=== PATIENT | male | born 1945 | race Caucasian/White ===

== ENCOUNTER 2016-10-30 06:14 | Observation (INO) | payer MEDICARE, OTHER ==
[~2016-10-30] VITALS: Ht 174.6 cm; Wt 129.6 kg
[~2016-10-30 06:14] MED LIST: ALKA SELTZER PL; ARTIFICIAL TEA3.5 GM OP; ASPIRIN E.C. 8181 MG PO; BACTROBAN 22GM22 GM TP; BENADRYL25 M2 PO; BYSTOLIC10 MG PO; CELEXA40 MG; CELEXA40 MG PO; CLARITIN 1010 MG/TAB PO; COREG12.5 MG; COZAAR 50MG50 MG/TAB PO; CRESTOR20 MG PO; DIOVAN HCT PO; FISH OIL 1000MG1 CAP PO; FLONASE NASAL S16 GM NAS; FLONASE NASAL S16 GM NS; GLUCOPHAGE500 MG/TAB PO; GLUCOSAMINE/CHONDROI; HCTZ12.5TAB PO; IBU400 MG; IMDUR 60MG60 MG/TAB PO; IPRATROPIUM BROM3 M1 IH; JANUMET 1000 MG1 TA1 PO; JANUMET 1000 MG1 TAB PO; LASIX 40MG TABL40 MG PO; LEVAQUIN 750MG750 M1 PO; LOTENSIN40 MG; MVI PO; NORCO 325 MG-51 TAB PO; NORVASC 5MG5 MG/TAB PO; NORVASC10 MG PO; NOVLOG SQ; OCUVITE1 TA1 PO; PATANOL OPHTHALM5 ML OU; PLAVIX 75MG TAB75 MG PO; PRILOSEC 20MG20 MG PO; PROSVENT PO; REPATHA SU140 MG/1 M SQ; SAM-E PO; SINEMET 25/101 UDTAB PO; STOOL SOFTENER100 M2; TRAMADOL50 MG PO; TYLENOL 500MG500 MG PO; TYLENOL 8 HR PO; WELLBUTRIN 75MG75 MG PO; XARELTO15 MG PO; ZOCOR80 MG PO; ZOVIRAX800 MG PO; ZYDONE 5 PO; ZYRTEC 10MG10 MG PO
[2016-10-30 07:30] LABS: BASO # 0.1 (0.0-0.2); BASO % 0.7 % (0.0-2.0); GRAN # 8.3 (1.4-6.5); GRAN % 82.4 % (42.2-75.2); HEMATOCRIT 43.1 % (42.0-52.0); HEMOGLOBIN 14.1 g/dl (13.5-18.0); LYMPH # 0.9 (1.2-3.4); LYMPH % 8.8 % (20.0-51.0); MEAN CELL VOLUME 96 fl (80.0-100.0); MEAN CORPUSCULAR HEMOGLOBIN 31 pg (27.0-31.0); MEAN CORPUSCULAR HGB CONC 33 g/dl (33.0-37.0); MEAN PLATELET VOLUME 9.8 fl (7.4-10.4); MONO # 0.8 (0.1-0.6); MONO % 7.5 % (1.7-9.3); PLATELET COUNT 229 K/mm3 (130-400); REDCELL DISTRIBUTION WIDTH-CV 12.7 % (11.5-14.5); WHITE BLOOD COUNT 10.1 K/mm3 (4.8-10.8)
[2016-10-30 07:43] LABS: ADJUSTED CALCIUM 9.7 mg/dL (8.4-10.2); ALBUMIN 4.5 gm/dL (3.5-5.0); BILIRUBIN,TOTAL 0.9 mg/dL (0.0-1.0); C-REACTIVE PROTEIN 2.1 mg/dL (0.0-0.9); CALCIUM 10.1 mg/dL (8.4-10.2); CREATININE, serum 0.69 mg/dL (0.66-1.25); POTASSIUM 4.4 mmol/L (3.4-5.0); TOTAL PROTEIN 8.5 gm/dL (6.4-8.2)
[2016-10-30 07:44] LABS: INR 1.1 (0.8-3.0); PROTHROMBIN TIME 12.7 SECONDS (9.7-12.8)
[2016-10-30 07:53] LABS: TROPONIN-I 0.022 ng/mL (0.000-0.034)
[2016-10-30 16:33] VITALS: BP 185/82; PULSE 101; TEMP 97.4
[2016-10-30 18:52] VITALS: BP 184/84
[2016-10-30 20:33] VITALS: BP 169/76; PULSE 103; TEMP 98.7
[2016-10-31 00:29] VITALS: BP 154/79; PULSE 103; TEMP 98.5
[2016-10-31 04:25] VITALS: BP 126/61; PULSE 100; TEMP 98
[2016-10-31 07:04] LABS: BASO % 0.6 % (0.0-2.0); GRAN # 5.2 (1.4-6.5); GRAN % 71.6 % (42.2-75.2); HEMOGLOBIN 13.7 g/dl (13.5-18.0); LYMPH # 1.2 (1.2-3.4); LYMPH % 16.4 % (20.0-51.0); MEAN CELL VOLUME 97 fl (80.0-100.0); MEAN CORPUSCULAR HEMOGLOBIN 32 pg (27.0-31.0); MEAN CORPUSCULAR HGB CONC 33 g/dl (33.0-37.0); MEAN PLATELET VOLUME 10.1 fl (7.4-10.4); MONO # 0.8 (0.1-0.6); PLATELET COUNT 249 K/mm3 (130-400); RED BLOOD COUNT 4.35 M/mm3 (4.20-5.60); REDCELL DISTRIBUTION WIDTH-CV 13.2 % (11.5-14.5); WHITE BLOOD COUNT 7.3 K/mm3 (4.8-10.8)
[2016-10-31 07:14] LABS: CALCIUM 9.3 mg/dL (8.4-10.2); CREATININE, serum 0.86 mg/dL (0.66-1.25); POTASSIUM 4.3 mmol/L (3.4-5.0)
[2016-10-31 07:49] VITALS: BP 153/71; PULSE 89; TEMP 97.8
[2016-10-31 07:56] LABS: TROPONIN-I 0.052 ng/mL (0.000-0.034)
[2016-10-31 11:44] VITALS: BP 107/46; PULSE 73
[2016-10-31 15:40] VITALS: BP 129/60; PULSE 72; TEMP 98.3
[2016-10-31 20:51] VITALS: BP 136/52; PULSE 73; TEMP 97.5
[2016-11-01] VITALS (7 sets, daily range): BP systolic 105–152; BP diastolic 50–76; PULSE 72–78; TEMP 98.3–98.7
[2016-11-01 08:52] LABS: CALCIUM 8.5 mg/dL (8.4-10.2); CREATININE, serum 0.99 mg/dL (0.66-1.25); POTASSIUM 3.9 mmol/L (3.4-5.0)
[2016-11-01] MEDS ORDERED: PROAIR HFA0.09 MG/AC IH (14:14)
[2016-11-01] MEDS ORDERED: ANORO IH (14:15)
[2016-11-01] MEDS ORDERED: LASIX 40MG TABL40 MG PO (14:40)
[2017-06-08] MEDS ORDERED: XARELTO20 MG PO (11:04)
[2017-06-08] MEDS ORDERED: FLOMAX 0.40.4 MG/CAP PO (14:56)
[2017-06-11] MEDS ORDERED: GLUCOTROL10 MG PO (11:18)
[2017-06-11] MEDS ORDERED: IMDUR 60MG60 MG/TAB PO (11:18)
[2017-06-11] MEDS ORDERED: SINEMET 25/101 UDTAB PO (11:18)
[2017-06-11] MEDS ORDERED: ASPI325T6 PO (11:18)
[2017-06-11] MEDS ORDERED: TRADJENTA5 MG PO (11:18)
[2017-06-11] MEDS ORDERED: LASIX 40MG TABL40 MG PO (11:18)
[2017-06-11] MEDS ORDERED: LIPITOR 10MG10 MG PO (11:18)
[2017-06-11] MEDS ORDERED: MAG-OX 400400 MG/TAB PO (11:18)
[2017-06-11] MEDS ORDERED: ZEBETA 5MG5 MG PO (11:18)
[2017-06-11] MEDS ORDERED: PLAVIX 75MG TAB75 MG PO (11:18)
[2017-06-11] MEDS ORDERED: NAPROSYN500 MG PO (11:21)
[2017-06-11] MEDS ORDERED: ULTRAM 50MG TAB50 MG PO (11:30)
== END 2016-11-01 16:31 | disposition home or self-care (01) ==
LOC: COL.ER 06:14 → MEDICAL 14:17
PROVIDERS: Emergency Medicine; Physician Assistant
DX: I50.9 Heart failure, unspecified (principal); I21.4 Non-ST elevation (NSTEMI) myocardial infarction; I25.10 Atherosclerotic heart disease of native coronary artery without angina pectoris; I10 Essential (primary) hypertension; E11.9 Type 2 diabetes mellitus without complications; Z79.4 Long term (current) use of insulin; Z79.84 Long term (current) use of oral hypoglycemic drugs; Z86.711 Personal history of pulmonary embolism; Z79.01 Long term (current) use of anticoagulants; Z95.5 Presence of coronary angioplasty implant and graft; J44.9 Chronic obstructive pulmonary disease, unspecified; Z87.891 Personal history of nicotine dependence; G20 Parkinson's disease; G47.33 Obstructive sleep apnea (adult) (pediatric); E66.01 Morbid (severe) obesity due to excess calories; F32.9 Major depressive disorder, single episode, unspecified; R33.9 Retention of urine, unspecified; Z66 Do not resuscitate
CPT/HCPCS: A9502; G0378; G8978-GP; G8979-GP; J0360; J1650; J1815; J1940; J2785; J7512; Q9967

== ENCOUNTER → 2016-11-22 | Outpatient (CLI) | payer MEDICARE, OTHER ==
[~2016-11-22] MED LIST changes: +ANORO IH; +ASPI325T6 PO; +ASPIRIN 81M81 MG/TA2 PO; +CIPRO 250MG TA250 MG PO; +COLACE 100100 MG/CAP PO; +COUMADIN 3MG3 MG/TAB PO; +COUMADIN 5MG5 MG/TAB PO; +DULCOLAX S10 MG/SUPP RC; +FLAGYL500 MG PO; +FLEXERIL 1010 MG/TAB PO; +FLOMAX 0.40.4 MG/CAP PO; +GLUCOTROL10 MG PO; +LIPITOR 10MG10 MG PO; +LOVENOX120 MG/0.8 SQ; +MAG-OX 400400 MG/TAB PO; +MICROZIDE12.5 MG PO; +MIRALAX PA17 GM/Dose PO; +NAPROSYN500 MG PO; +PROAIR HFA0.09 MG/AC IH; +SENOKOT S 50 MG1 TAB PO; +TRADJENTA5 MG PO; +TYLENOL 325MG325 MG PO; +ULTRAM 50MG TAB50 MG PO; +XARELTO20 MG PO; +ZEBETA 5MG5 MG PO; +ZOCOR 20MG20 MG PO
== END ==
LOC: COL.PUL 11-07 15:00
DX: J44.9 Chronic obstructive pulmonary disease, unspecified (principal); Z86.711 Personal history of pulmonary embolism; I25.10 Atherosclerotic heart disease of native coronary artery without angina pectoris; I10 Essential (primary) hypertension
CPT/HCPCS: A9539; A9540

== ENCOUNTER 2016-12-01 03:24 | Observation (INO) | payer MEDICARE, OTHER ==
[~2016-12-01] VITALS: Ht 172.7 cm; Wt 128.5 kg
[2016-12-01] VITALS (12 sets, daily range): BP systolic 120–182; BP diastolic 58–95; PULSE 74–92; TEMP 97.6–98.4
[~2016-12-01 03:24] MED LIST changes: -ASPI325T6 PO; -ASPIRIN 81M81 MG/TA2 PO; -CIPRO 250MG TA250 MG PO; -COLACE 100100 MG/CAP PO; -COUMADIN 3MG3 MG/TAB PO; -COUMADIN 5MG5 MG/TAB PO; -DULCOLAX S10 MG/SUPP RC; -FLAGYL500 MG PO; -FLEXERIL 1010 MG/TAB PO; -FLOMAX 0.40.4 MG/CAP PO; -GLUCOTROL10 MG PO; -LIPITOR 10MG10 MG PO; -LOVENOX120 MG/0.8 SQ; -MAG-OX 400400 MG/TAB PO; -MICROZIDE12.5 MG PO; -MIRALAX PA17 GM/Dose PO; -NAPROSYN500 MG PO; -SENOKOT S 50 MG1 TAB PO; -TRADJENTA5 MG PO; -TYLENOL 325MG325 MG PO; -ULTRAM 50MG TAB50 MG PO; -XARELTO20 MG PO; -ZEBETA 5MG5 MG PO; -ZOCOR 20MG20 MG PO
[2016-12-01] MEDS ORDERED: ASPIRIN 81M81 MG/TA2 PO (03:48)
[2016-12-01] MEDS ORDERED: WELLBUTRIN 75MG75 MG PO (03:49)
[2016-12-01] MEDS ORDERED: NORVASC 5MG5 MG/TAB PO (03:50)
[2016-12-01 03:51] LABS: BASO % 0.1 % (0.0-2.0); GRAN # 11.9 (1.4-6.5); GRAN % 86.1 % (42.2-75.2); HEMATOCRIT 42.7 % (42.0-52.0); LYMPH % 7.1 % (20.0-51.0); MEAN CELL VOLUME 97 fl (80.0-100.0); MEAN CORPUSCULAR HEMOGLOBIN 32 pg (27.0-31.0); MEAN CORPUSCULAR HGB CONC 33 g/dl (33.0-37.0); MEAN PLATELET VOLUME 9.2 fl (7.4-10.4); MONO # 0.9 (0.1-0.6); MONO % 6.2 % (1.7-9.3); PLATELET COUNT 259 K/mm3 (130-400); WHITE BLOOD COUNT 13.9 K/mm3 (4.8-10.8)
[2016-12-01] MEDS ORDERED: MICROZIDE12.5 MG PO (03:51)
[2016-12-01] MEDS ORDERED: GLUCOPHAGE500 MG/TAB PO (03:51)
[2016-12-01] MEDS ORDERED: OCUVITE1 TA1 PO (03:52)
[2016-12-01] MEDS ORDERED: BYSTOLIC10 MG PO (03:52)
[2016-12-01 04:06] LABS: ADJUSTED CALCIUM 9.1 mg/dL (8.4-10.2); ALANINE AMINOTRANSFERASE 39 U/L (21-72); ALBUMIN 3.9 gm/dL (3.5-5.0); ALKALINE PHOSPHATASE 78 U/L (50-136); ANION GAP 12 mmol/L (7-16); BILIRUBIN,TOTAL 0.5 mg/dL (0.0-1.0); BLOOD UREA NITROGEN 20 mg/dL (9-20); CARBON DIOXIDE 24 mmol/L (22-30); CHLORIDE 101 mmol/L (98-107); CREATININE, serum 0.82 mg/dL (0.66-1.25); GLUCOSE 284 mg/dL (74-106); POTASSIUM 4.7 mmol/L (3.4-5.0); PROTHROMBIN TIME 11.4 SECONDS (9.7-12.8); SODIUM 138 mmol/L (137-145); TOTAL PROTEIN 7.3 gm/dL (6.4-8.2)
[2016-12-01 04:08] LABS: PARTIAL THROMBOPLASTIN TIME 27.1 SECONDS (26.0-37.0)
[2016-12-01 16:06] LABS: TROPONIN-I < 0.012 ng/mL (0.000-0.034)
[2016-12-02 04:22] VITALS: BP 120/88; PULSE 89; TEMP 97.5
[2016-12-02 07:40] LABS: HEMATOCRIT 37.4 % (42.0-52.0); MEAN CELL VOLUME 98 fl (80.0-100.0); MEAN CORPUSCULAR HEMOGLOBIN 31 pg (27.0-31.0); MEAN CORPUSCULAR HGB CONC 32 g/dl (33.0-37.0); MEAN PLATELET VOLUME 9.3 fl (7.4-10.4); PLATELET COUNT 214 K/mm3 (130-400); RED BLOOD COUNT 3.82 M/mm3 (4.20-5.60); REDCELL DISTRIBUTION WIDTH-CV 13.2 % (11.5-14.5); WHITE BLOOD COUNT 10.3 K/mm3 (4.8-10.8)
[2016-12-02 07:45] VITALS: BP 156/68; PULSE 83; TEMP 97.8
[2016-12-02 08:10] LABS: CALCIUM 8.3 mg/dL (8.4-10.2); CREATININE, serum 0.68 mg/dL (0.66-1.25); POTASSIUM 3.7 mmol/L (3.4-5.0)
[2016-12-02 11:27] VITALS: BP 172/80; PULSE 87; TEMP 98.6
[2016-12-02] MEDS ORDERED: CIPRO 250MG TA250 MG PO (14:44)
[2016-12-02] MEDS ORDERED: FLAGYL500 MG PO (14:45)
[2016-12-02] MEDS ORDERED: ZOCOR 20MG20 MG PO (15:00)
[2017-06-08] MEDS ORDERED: XARELTO20 MG PO (11:04)
[2017-06-08] MEDS ORDERED: FLOMAX 0.40.4 MG/CAP PO (14:56)
[2017-06-11] MEDS ORDERED: ZEBETA 5MG5 MG PO (11:18)
[2017-06-11] MEDS ORDERED: PLAVIX 75MG TAB75 MG PO (11:18)
[2017-06-11] MEDS ORDERED: TRADJENTA5 MG PO (11:18)
[2017-06-11] MEDS ORDERED: SINEMET 25/101 UDTAB PO (11:18)
[2017-06-11] MEDS ORDERED: GLUCOTROL10 MG PO (11:18)
[2017-06-11] MEDS ORDERED: IMDUR 60MG60 MG/TAB PO (11:18)
[2017-06-11] MEDS ORDERED: LASIX 40MG TABL40 MG PO (11:18)
[2017-06-11] MEDS ORDERED: ASPI325T6 PO (11:18)
[2017-06-11] MEDS ORDERED: LIPITOR 10MG10 MG PO (11:18)
[2017-06-11] MEDS ORDERED: MAG-OX 400400 MG/TAB PO (11:18)
[2017-06-11] MEDS ORDERED: NAPROSYN500 MG PO (11:21)
[2017-06-11] MEDS ORDERED: ULTRAM 50MG TAB50 MG PO (11:30)
== END 2016-12-02 16:45 | disposition home or self-care (01) ==
LOC: COL.ER 03:24 → MEDICAL 05:36
PROVIDERS: Emergency Medicine; Internal Medicine
DX: K92.2 Gastrointestinal hemorrhage, unspecified (principal); D62 Acute posthemorrhagic anemia; A41.9 Sepsis, unspecified organism; R07.89 Other chest pain; Z79.84 Long term (current) use of oral hypoglycemic drugs; E11.9 Type 2 diabetes mellitus without complications; I10 Essential (primary) hypertension; E78.5 Hyperlipidemia, unspecified; I25.10 Atherosclerotic heart disease of native coronary artery without angina pectoris; Z86.711 Personal history of pulmonary embolism; R19.5 Other fecal abnormalities; D12.5 Benign neoplasm of sigmoid colon; K55.9 Vascular disorder of intestine, unspecified; R19.7 Diarrhea, unspecified; K57.30 Diverticulosis of large intestine without perforation or abscess without bleeding; Z87.891 Personal history of nicotine dependence
CPT/HCPCS: 99239; G0378; J0744; J1815; J2250; J3010; J7030; Q9967

== ENCOUNTER → 2016-12-01 | Outpatient (REF) | LOC: ZLAB.WCH 16:10 | DX: Z01.89 Encounter for other specified special examinations (principal) ==

== ENCOUNTER 2016-12-10 11:00 | Inpatient (IN) | payer MEDICARE, OTHER ==
[~2016-12-10] VITALS: Ht 172.7 cm; Wt 126.0 kg
[~2016-12-10 11:00] MED LIST changes: +ASPIRIN 81M81 MG/TA2 PO; +CIPRO 250MG TA250 MG PO; +FLAGYL500 MG PO; +MICROZIDE12.5 MG PO; +ZOCOR 20MG20 MG PO
[2016-12-10 11:50] VITALS: BP 87/50; PULSE 99; TEMP 97.5
[2016-12-10 12:37] LABS: BASO # 0.1 (0.0-0.2); BASO % 1.1 % (0.0-2.0); EOS % 0.1 % (0-4.0); GRAN # 7.5 (1.4-6.5); GRAN % 71.5 % (42.2-75.2); HEMATOCRIT 38.9 % (42.0-52.0); HEMOGLOBIN 12.7 g/dl (13.5-18.0); LYMPH # 2.1 (1.2-3.4); LYMPH % 19.6 % (20.0-51.0); MEAN CELL VOLUME 97 fl (80.0-100.0); MEAN CORPUSCULAR HEMOGLOBIN 32 pg (27.0-31.0); MEAN CORPUSCULAR HGB CONC 33 g/dl (33.0-37.0); MEAN PLATELET VOLUME 9.6 fl (7.4-10.4); MONO # 0.8 (0.1-0.6); MONO % 7.4 % (1.7-9.3); PLATELET COUNT 225 K/mm3 (130-400); REDCELL DISTRIBUTION WIDTH-CV 13.2 % (11.5-14.5); WHITE BLOOD COUNT 10.5 K/mm3 (4.8-10.8)
[2016-12-10 12:48] LABS: ALBUMIN 3.9 gm/dL (3.5-5.0); BILIRUBIN,TOTAL 0.7 mg/dL (0.0-1.0); CALCIUM 8.9 mg/dL (8.4-10.2); CREATININE, serum 0.96 mg/dL (0.66-1.25); MAGNESIUM 1.7 mg/dL (1.6-2.3); POTASSIUM 4.3 mmol/L (3.4-5.0); TOTAL PROTEIN 7.4 gm/dL (6.4-8.2)
[2016-12-10 13:00] LABS: TROPONIN-I 0.235 ng/mL (0.000-0.034)
[2016-12-10 16:19] VITALS: BP 93/61; PULSE 91; TEMP 97.6
[2016-12-10 20:33] VITALS: BP 100/52; PULSE 83; TEMP 97.9
[2016-12-11] VITALS (7 sets, daily range): BP systolic 96–117; BP diastolic 47–68; PULSE 79–83; TEMP 97–98.7
[2016-12-11 08:30] LABS: BASO # 0.1 (0.0-0.2); EOS % 0.2 % (0-4.0); GRAN # 6.5 (1.4-6.5); GRAN % 63.1 % (42.2-75.2); HEMATOCRIT 37.8 % (42.0-52.0); LYMPH # 2.9 (1.2-3.4); LYMPH % 27.7 % (20.0-51.0); MEAN CELL VOLUME 101 fl (80.0-100.0); MEAN CORPUSCULAR HEMOGLOBIN 32 pg (27.0-31.0); MEAN CORPUSCULAR HGB CONC 32 g/dl (33.0-37.0); MONO # 0.8 (0.1-0.6); MONO % 7.6 % (1.7-9.3); PLATELET COUNT 211 K/mm3 (130-400); RED BLOOD COUNT 3.76 M/mm3 (4.20-5.60); REDCELL DISTRIBUTION WIDTH-CV 13.6 % (11.5-14.5); WHITE BLOOD COUNT 10.3 K/mm3 (4.8-10.8)
[2016-12-11 08:42] LABS: HEMOGLOBIN 11.9 g/dl (13.5-18.0)
[2016-12-12 03:58] VITALS: BP 109/58; PULSE 71; TEMP 97.6
[2016-12-12 07:48] LABS: BASO # 0.1 (0.0-0.2); BASO % 1.4 % (0.0-2.0); EOS # 1.5 (0.0-0.7); EOS % 18.8 % (0-4.0); GRAN # 3.7 (1.4-6.5); LYMPH % 25.4 % (20.0-51.0); MEAN CELL VOLUME 97 fl (80.0-100.0); MEAN CORPUSCULAR HGB CONC 33 g/dl (33.0-37.0); MEAN PLATELET VOLUME 10.1 fl (7.4-10.4); MONO # 0.6 (0.1-0.6); MONO % 7.8 % (1.7-9.3); PLATELET COUNT 197 K/mm3 (130-400); RED BLOOD COUNT 3.52 M/mm3 (4.20-5.60); REDCELL DISTRIBUTION WIDTH-CV 13.5 % (11.5-14.5)
[2016-12-12 07:53] LABS: INR 1.2 (0.8-3.0); PROTHROMBIN TIME 13.4 SECONDS (9.7-12.8)
[2016-12-12 07:58] LABS: HEMATOCRIT 34.2 % (42.0-52.0); HEMOGLOBIN 11.1 g/dl (13.5-18.0); MEAN CORPUSCULAR HEMOGLOBIN 32 pg (27.0-31.0)
[2016-12-12 08:04] VITALS: BP 118/57; PULSE 70; TEMP 97.6
[2016-12-12 08:11] LABS: CREATININE, serum 1.01 mg/dL (0.66-1.25); POTASSIUM 3.9 mmol/L (3.4-5.0)
[2016-12-12 10:00] VITALS: BP 129/65; PULSE 70; TEMP 97.3
[2016-12-12 16:06] VITALS: BP 96/65; PULSE 71; TEMP 97.8
[2016-12-12 19:19] VITALS: BP 118/53; PULSE 69; TEMP 98.7
[2016-12-12 23:21] VITALS: BP 133/61; PULSE 73; TEMP 97.6
[2016-12-13 02:56] VITALS: BP 130/69; PULSE 73; TEMP 97.6
[2016-12-13 07:53] LABS: BASO # 0.1 (0.0-0.2); BASO % 1.1 % (0.0-2.0); GRAN # 5.4 (1.4-6.5); GRAN % 69.3 % (42.2-75.2); LYMPH # 1.6 (1.2-3.4); LYMPH % 20.8 % (20.0-51.0); MEAN CELL VOLUME 98 fl (80.0-100.0); MEAN CORPUSCULAR HGB CONC 32 g/dl (33.0-37.0); MEAN PLATELET VOLUME 9.9 fl (7.4-10.4); MONO # 0.7 (0.1-0.6); MONO % 8.3 % (1.7-9.3); PLATELET COUNT 201 K/mm3 (130-400); RED BLOOD COUNT 3.33 M/mm3 (4.20-5.60); REDCELL DISTRIBUTION WIDTH-CV 13.3 % (11.5-14.5); WHITE BLOOD COUNT 7.9 K/mm3 (4.8-10.8)
[2016-12-13 08:00] LABS: HEMATOCRIT 32.5 % (42.0-52.0); HEMOGLOBIN 10.4 g/dl (13.5-18.0); MEAN CORPUSCULAR HEMOGLOBIN 31 pg (27.0-31.0)
[2016-12-13 08:09] VITALS: BP 144/59; PULSE 74; TEMP 97.3
[2016-12-13 08:10] LABS: INR 1.2 (0.8-3.0); PROTHROMBIN TIME 13.1 SECONDS (9.7-12.8)
[2016-12-13] MEDS ORDERED: COUMADIN 5MG5 MG/TAB PO (09:45)
[2016-12-13] MEDS ORDERED: COUMADIN 3MG3 MG/TAB PO (09:46)
[2016-12-13] MEDS ORDERED: LOVENOX120 MG/0.8 SQ (09:52)
[2016-12-13 11:28] VITALS: BP 141/69; PULSE 74; TEMP 98.9
[2017-06-08] MEDS ORDERED: XARELTO20 MG PO (11:04)
[2017-06-08] MEDS ORDERED: FLOMAX 0.40.4 MG/CAP PO (14:56)
[2017-06-11] MEDS ORDERED: MAG-OX 400400 MG/TAB PO (11:18)
[2017-06-11] MEDS ORDERED: SINEMET 25/101 UDTAB PO (11:18)
[2017-06-11] MEDS ORDERED: ZEBETA 5MG5 MG PO (11:18)
[2017-06-11] MEDS ORDERED: ASPI325T6 PO (11:18)
[2017-06-11] MEDS ORDERED: TRADJENTA5 MG PO (11:18)
[2017-06-11] MEDS ORDERED: LASIX 40MG TABL40 MG PO (11:18)
[2017-06-11] MEDS ORDERED: PLAVIX 75MG TAB75 MG PO (11:18)
[2017-06-11] MEDS ORDERED: IMDUR 60MG60 MG/TAB PO (11:18)
[2017-06-11] MEDS ORDERED: LIPITOR 10MG10 MG PO (11:18)
[2017-06-11] MEDS ORDERED: GLUCOTROL10 MG PO (11:18)
[2017-06-11] MEDS ORDERED: NAPROSYN500 MG PO (11:21)
[2017-06-11] MEDS ORDERED: ULTRAM 50MG TAB50 MG PO (11:30)
== END 2016-12-13 15:47 | disposition home or self-care (01) | DRG 175 ==
LOC: MEDICAL 11:00
PROVIDERS: Family Medicine; Internal Medicine; Nurse Practitioner Family; Physician Assistant
DX: I26.99 Other pulmonary embolism without acute cor pulmonale (principal); I21.4 Non-ST elevation (NSTEMI) myocardial infarction; I82.441 Acute embolism and thrombosis of right tibial vein; Z68.41 Body mass index [BMI] 40.0-44.9, adult; I10 Essential (primary) hypertension; E11.9 Type 2 diabetes mellitus without complications; G20 Parkinson's disease; E66.01 Morbid (severe) obesity due to excess calories; R53.81 Other malaise; Z95.5 Presence of coronary angioplasty implant and graft; Z86.711 Personal history of pulmonary embolism
CPT/HCPCS: 99223-AI; 99232-AI; 99239; J1815

== ENCOUNTER 2017-06-11 14:16 | Inpatient (IN) | payer MEDICARE, OTHER ==
[~2017-06-11] VITALS: Ht 172.7 cm; Wt 126.7 kg
[~2017-06-11 14:16] MED LIST changes: +ASPI325T6 PO; +COUMADIN 3MG3 MG/TAB PO; +COUMADIN 5MG5 MG/TAB PO; +FLOMAX 0.40.4 MG/CAP PO; +GLUCOTROL10 MG PO; +LIPITOR 10MG10 MG PO; +LOVENOX120 MG/0.8 SQ; +MAG-OX 400400 MG/TAB PO; +NAPROSYN500 MG PO; +TRADJENTA5 MG PO; +ULTRAM 50MG TAB50 MG PO; +XARELTO20 MG PO; +ZEBETA 5MG5 MG PO
[2017-06-11 18:00] VITALS: BP 129/64; PULSE 67; TEMP 97.6
[2017-06-11 19:27] VITALS: BP 129/64; PULSE 67; TEMP 97.6
[2017-06-12 04:52] VITALS: BP 124/65; PULSE 67; TEMP 97.6
[2017-06-12 16:00] VITALS: BP 144/70; PULSE 67; TEMP 97
[2017-06-13 06:45] VITALS: BP 150/64; PULSE 64; TEMP 98.5
[2017-06-13 17:48] VITALS: BP 152/66; PULSE 66; TEMP 98.2
[2017-06-14 05:20] VITALS: BP 143/75; PULSE 70; TEMP 97.7
[2017-06-14 06:26] VITALS: BP 152/61; PULSE 74
[2017-06-14 18:02] VITALS: BP 129/64; PULSE 42; TEMP 97.6
[2017-06-15 05:08] VITALS: BP 144/73; PULSE 65; TEMP 97.9
[2017-06-15 16:29] VITALS: BP 111/50; PULSE 65; TEMP 96.8
[2017-06-16 04:28] VITALS: BP 142/61; PULSE 63; TEMP 97.2
[2017-06-16 16:38] VITALS: BP 114/70; PULSE 75; TEMP 97.4
[2017-06-17 05:16] VITALS: BP 132/63; PULSE 67; TEMP 98
[2017-06-17 16:52] VITALS: BP 142/60; PULSE 73; TEMP 99
[2017-06-18 04:07] VITALS: BP 132/57; PULSE 68; TEMP 98.6
[2017-06-18 17:34] VITALS: BP 122/63; PULSE 76; TEMP 97.8
[2017-06-19 05:00] VITALS: BP 133/62; PULSE 64; TEMP 98.8
[2017-06-19 17:07] VITALS: BP 136/66; PULSE 75; TEMP 98.4
[2017-06-19 18:01] VITALS: BP 136/57; PULSE 73; TEMP 99.2
[2017-06-20 06:30] VITALS: BP 134/62; PULSE 73; TEMP 98.3
[2017-06-20] MEDS ORDERED: FLEXERIL 1010 MG/TAB PO (12:03)
[2017-06-20] MEDS ORDERED: TYLENOL 325MG325 MG PO (12:03)
[2017-06-20] MEDS ORDERED: DULCOLAX S10 MG/SUPP RC (12:04)
[2017-06-20] MEDS ORDERED: COLACE 100100 MG/CAP PO (12:04)
[2017-06-20] MEDS ORDERED: SENOKOT S 50 MG1 TAB PO (12:04)
[2017-06-20] MEDS ORDERED: MIRALAX PA17 GM/Dose PO (12:04)
[2017-06-20] MEDS ORDERED: GLUCOTROL10 MG PO (12:05)
[2017-06-20] MEDS ORDERED: NOVLOG SQ (12:05)
[2017-06-20] MEDS ORDERED: ULTRAM 50MG TAB50 MG PO (12:06)
[2017-06-20] MEDS ORDERED: IPRATROPIUM BROM3 M1 IH (12:11)
== END 2017-06-20 15:21 | DRG 57 ==
DX: G20 Parkinson's disease (principal); Z68.41 Body mass index [BMI] 40.0-44.9, adult; E11.42 Type 2 diabetes mellitus with diabetic polyneuropathy; M54.12 Radiculopathy, cervical region; I10 Essential (primary) hypertension; Z95.5 Presence of coronary angioplasty implant and graft; E66.01 Morbid (severe) obesity due to excess calories; R33.9 Retention of urine, unspecified
CPT/HCPCS: 99222-AI; 99232-AI; 99233-AI; 99239; J1815

== ENCOUNTER → 2017-07-11 | Outpatient (REF) ==
[~2017-07-11] MED LIST changes: +COLACE 100100 MG/CAP PO; +DULCOLAX S10 MG/SUPP RC; +FLEXERIL 1010 MG/TAB PO; +MIRALAX PA17 GM/Dose PO; +SENOKOT S 50 MG1 TAB PO; +TYLENOL 325MG325 MG PO
[2017-07-11 11:00] LABS: HYALINE CAST >12 /lpf; PH 5 (5-8); SQUAMOUS EPITHELIAL 0-2 /hpf; URINE APPEARANCE Cloudy; URINE BACTERIA None Seen /hpf; URINE BILIRUBIN Negative (NEGATIVE); URINE BLOOD 1+ (NEGATIVE); URINE COLOR Amber; URINE GLUCOSE Negative (NEGATIVE); URINE KETONE Trace (NEGATIVE); URINE UROBILINOGEN >=4.0 mg/dL (NEGATIVE)
[2017-07-11 11:05] LABS: URINE WBC >50 /hpf
== END ==
LOC: ZLAB.STJ 10:33
PROVIDERS: Internal Medicine
DX: Z02.89 Encounter for other administrative examinations (principal)

== ENCOUNTER → 2017-10-01 | Outpatient (CLI) | payer MEDICARE, OTHER ==
[2017-10-01 15:50] LABS: THYROID STIMULATING HORMONE 6.61 uIU/mL (0.465-4.680)
[2017-10-02 01:09] LABS: RPR (VDRL) Non-reactive (())
== END ==
LOC: ZLAB.STJ 14:23
PROVIDERS: Internal Medicine
DX: M62.81 Muscle weakness (generalized) (principal); E03.9 Hypothyroidism, unspecified; A53.9 Syphilis, unspecified

== ENCOUNTER 2017-10-14 17:39 | Emergency (ER) | payer MEDICARE, OTHER ==
[~2017-10-14] VITALS: Ht 172.7 cm; Wt 104.5 kg
[2017-10-14 17:40] VITALS: TEMP 96.7
[2017-10-14 18:09] LABS: BASO # 0.1 (0.0-0.2); BASO % 0.7 % (0.0-2.0); GRAN # 4.9 (1.4-6.5); GRAN % 67.6 % (42.2-75.2); LYMPH # 1.6 (1.2-3.4); LYMPH % 22.1 % (20.0-51.0); MEAN CELL VOLUME 100 fl (80.0-100.0); MEAN CORPUSCULAR HGB CONC 32 g/dl (33.0-37.0); MEAN PLATELET VOLUME 9.8 fl (7.4-10.4); MONO # 0.7 (0.1-0.6); MONO % 9.2 % (1.7-9.3); PLATELET COUNT 227 K/mm3 (130-400); RED BLOOD COUNT 3.66 M/mm3 (4.20-5.60); REDCELL DISTRIBUTION WIDTH-CV 14.2 % (11.5-14.5)
[2017-10-14 18:10] LABS: HEMATOCRIT 36.6 % (42.0-52.0); HEMOGLOBIN 11.8 g/dl (13.5-18.0); MEAN CORPUSCULAR HEMOGLOBIN 32 pg (27.0-31.0)
[2017-10-14 18:14] LABS: ALANINE AMINOTRANSFERASE 19 U/L (21-72); ALBUMIN 4.4 gm/dL (3.5-5.0); ALKALINE PHOSPHATASE 71 U/L (50-136); ANION GAP 12 mmol/L (7-16); AST,SGOT 36 U/L (15-37); BILIRUBIN,TOTAL 0.5 mg/dL (0.0-1.0); BLOOD UREA NITROGEN 21 mg/dL (9-20); CALCIUM 9.6 mg/dL (8.4-10.2); CARBON DIOXIDE 28 mmol/L (22-30); CHLORIDE 96 mmol/L (98-107); CREATININE, serum 0.86 mg/dL (0.66-1.25); GLUCOSE 65 mg/dL (74-106); POTASSIUM 3.9 mmol/L (3.4-5.0); SODIUM 135 mmol/L (137-145); TOTAL PROTEIN 7.3 gm/dL (6.4-8.2)
[2017-10-14 18:28] LABS: TROPONIN-I < 0.012 ng/mL (0.000-0.034)
[2017-10-14] MEDS ORDERED: SEN-O-TABS8.6 MG PO (18:57)
[2017-10-14] MEDS ORDERED: TRIAMC 0.025 454 TOP (18:58)
[2017-10-14] MEDS ORDERED: BONINE25 MG PO (19:02)
[2017-10-14] MEDS ORDERED: REQUIP XL6 MG PO (19:04)
[2017-10-14] MEDS ORDERED: LEXAPRO 5MG5 MG PO (19:07)
[2017-10-14] MEDS ORDERED: CYANOCOBAL1000 MCG/M IM (19:08)
[2017-10-14] MEDS ORDERED: TIROSINT50 MC1 PO (19:08)
[2017-10-14] MEDS ORDERED: GLUCERNA 240 M240 ML (19:09)
[2017-10-14 19:37] LABS: COLLECTION METHOD CLEAN CATCH
[2017-10-14 19:59] LABS: HYALINE CAST >12 /lpf; MUCOUS Present /lpf; PH 5 (5-8); SQUAMOUS EPITHELIAL None Seen /hpf; URINE APPEARANCE Clear; URINE BACTERIA Rare /hpf; URINE BILIRUBIN Negative (NEGATIVE); URINE BLOOD Negative (NEGATIVE); URINE COLOR Yellow; URINE GLUCOSE Negative (NEGATIVE); URINE KETONE 1+ (NEGATIVE); URINE LEUKOCYTE ESTERASE Negative (NEGATIVE); URINE NITRATE Negative (NEGATIVE); URINE PROTEIN(semi-quant) Negative (NEGATIVE); URINE RBC 0-2 /hpf; URINE UROBILINOGEN Negative (NEGATIVE)
[2017-10-14 20:39] VITALS: BP 110/60; PULSE 62
== END 2017-10-14 20:40 | disposition home or self-care (01) ==
LOC: COL.ER 17:39
PROVIDERS: Emergency Medicine
DX: E11.649 Type 2 diabetes mellitus with hypoglycemia without coma (principal); I25.2 Old myocardial infarction; I10 Essential (primary) hypertension; Z79.84 Long term (current) use of oral hypoglycemic drugs; Z79.82 Long term (current) use of aspirin; Z87.891 Personal history of nicotine dependence

== ENCOUNTER → 2017-10-26 | Outpatient (REF) ==
[~2017-10-26] MED LIST changes: +BONINE25 MG PO; +CYANOCOBAL1000 MCG/M IM; +GLUCERNA 240 M240 ML; +LEXAPRO 5MG5 MG PO; +REQUIP XL6 MG PO; +SEN-O-TABS8.6 MG PO; +TIROSINT50 MC1 PO; +TRIAMC 0.025 454 TOP
[2017-10-26 10:03] LABS: CALCIUM 9.2 mg/dL (8.4-10.2); CREATININE, serum 0.71 mg/dL (0.66-1.25); POTASSIUM 4.6 mmol/L (3.4-5.0)
== END ==
LOC: ZLAB.STJ 09:32
PROVIDERS: Internal Medicine
DX: G20 Parkinson's disease (principal)

== ENCOUNTER → 2017-11-15 | Outpatient (REF) | LOC: ZLAB.STJ 09:58 | DX: G20 Parkinson's disease (principal) ==

== ENCOUNTER → 2017-11-16 | Outpatient (REF) | LOC: ZLAB.STJ 09:26 | DX: Z01.89 Encounter for other specified special examinations (principal) ==

== ENCOUNTER → 2017-11-21 | Outpatient (REF) | LOC: ZLAB.STJ 09:27 | DX: E11.40 Type 2 diabetes mellitus with diabetic neuropathy, unspecified (principal) ==

== ENCOUNTER → 2017-12-06 | Outpatient (REF) | LOC: ZLAB.STJ 09:40 | DX: Z01.89 Encounter for other specified special examinations (principal) ==

== ENCOUNTER → 2017-12-13 | Outpatient (CLI) | payer MEDICARE, OTHER ==
[2017-12-13 20:12] LABS: COLLECTION METHOD CLEAN CATCH
[2017-12-13 20:56] LABS: MUCOUS Present /lpf; PH 5 (5-8); SQUAMOUS EPITHELIAL 0-2 /hpf; URINE APPEARANCE Clear; URINE BACTERIA Rare /hpf; URINE BILIRUBIN Negative (NEGATIVE); URINE BLOOD Negative (NEGATIVE); URINE COLOR Yellow; URINE GLUCOSE Negative (NEGATIVE); URINE KETONE Trace (NEGATIVE); URINE LEUKOCYTE ESTERASE Negative (NEGATIVE); URINE NITRATE Negative (NEGATIVE); URINE PROTEIN(semi-quant) Negative (NEGATIVE); URINE RBC 0-2 /hpf; URINE UROBILINOGEN Negative (NEGATIVE)
== END ==
LOC: COL.LAB 19:32
PROVIDERS: Internal Medicine
DX: R33.8 Other retention of urine (principal)

== ENCOUNTER 2017-12-20 15:06 | Observation (INO) | payer MEDICARE, OTHER ==
[~2017-12-20] VITALS: Ht 177.8 cm; Wt 88.6 kg
[~2017-12-20 15:06] MED LIST changes: +COZAAR 25MG25 MG/TAB PO; -COZAAR 50MG50 MG/TAB PO; +LEXAPRO 10MG10 MG PO; -LEXAPRO 5MG5 MG PO; +NORVASC 10MG10 MG PO
[2017-12-20 16:37] LABS: INR 1.2 (0.8-3.0); PROTHROMBIN TIME 14.3 SECONDS (9.7-12.8)
[2017-12-20 16:38] LABS: BASO % 0.4 % (0.0-2.0); GRAN # 5.4 (1.4-6.5); GRAN % 77.4 % (42.2-75.2); HEMATOCRIT 43.2 % (42.0-52.0); HEMOGLOBIN 14.2 g/dl (13.5-18.0); LYMPH % 13.8 % (20.0-51.0); MEAN CELL VOLUME 101 fl (80.0-100.0); MEAN CORPUSCULAR HEMOGLOBIN 33 pg (27.0-31.0); MEAN CORPUSCULAR HGB CONC 33 g/dl (33.0-37.0); MEAN PLATELET VOLUME 9.8 fl (7.4-10.4); MONO # 0.5 (0.1-0.6); MONO % 7.7 % (1.7-9.3); PLATELET COUNT 208 K/mm3 (130-400); REDCELL DISTRIBUTION WIDTH-CV 14.1 % (11.5-14.5)
[2017-12-20 16:47] LABS: ALBUMIN 4.6 gm/dL (3.5-5.0); BILIRUBIN,TOTAL 0.6 mg/dL (0.0-1.0); CALCIUM 9.5 mg/dL (8.4-10.2); CREATININE, serum 1.93 mg/dL (0.66-1.25); POTASSIUM 4.4 mmol/L (3.4-5.0); TOTAL PROTEIN 7.8 gm/dL (6.4-8.2)
[2017-12-20] MEDS ORDERED: PRINCIPEN500 MG PO (17:44)
[2017-12-20] MEDS ORDERED: GLUCOTROL10 MG PO (19:14)
[2017-12-20] MEDS ORDERED: BIOTENE MOIST44.3 ML (19:19)
[2017-12-20] MEDS ORDERED: ZOFRAN 4MG T4 MG/TAB PO (19:20)
[2017-12-20 19:30] VITALS: BP 134/62; PULSE 80; TEMP 98.3
[2017-12-20] MEDS ORDERED: COLACE 100100 MG/CAP PO (19:31)
[2017-12-20] MEDS ORDERED: SINEMET 25/101 UDTAB PO (19:36)
[2017-12-20] MEDS ORDERED: ASPIRIN 81M81 MG/TA2 PO (19:39)
[2017-12-20] MEDS ORDERED: SELSUN 120 ML120 ML (19:39)
[2017-12-20 20:22] VITALS: BP 106/52; PULSE 61; TEMP 97.8
[2017-12-20 20:46] VITALS: BP 106/52; PULSE 61; TEMP 97.8
[2017-12-20 22:11] LABS: TSH w REFLEX 1.82 uIU/mL (0.465-4.680)
[2017-12-20 22:26] LABS: COLLECTION METHOD CATHETER
[2017-12-20 22:36] LABS: AMORPHOUS CRYSTAL Present /uL; MUCOUS Present /lpf; PH 5 (5-8); SQUAMOUS EPITHELIAL 0-2 /hpf; URINE APPEARANCE Cloudy; URINE BACTERIA Rare /hpf; URINE BILIRUBIN Negative (NEGATIVE); URINE BLOOD Negative (NEGATIVE); URINE COLOR Amber; URINE GLUCOSE Negative (NEGATIVE); URINE KETONE Trace (NEGATIVE); URINE LEUKOCYTE ESTERASE 1+ (NEGATIVE); URINE NITRATE Negative (NEGATIVE); URINE PROTEIN(semi-quant) 1+ (NEGATIVE); URINE RBC 0-2 /hpf
[2017-12-20] MEDS ORDERED: ULTRAM 50MG TAB50 MG PO (23:10)
[2017-12-20 23:56] VITALS: BP 108/46; PULSE 59; TEMP 97.5
[2017-12-21 04:18] VITALS: BP 131/73; PULSE 68; TEMP 98.2
[2017-12-21 06:52] LABS: BASO % 0.6 % (0.0-2.0); GRAN # 4.1 (1.4-6.5); GRAN % 65.4 % (42.2-75.2); HEMATOCRIT 35.8 % (42.0-52.0); HEMOGLOBIN 11.5 g/dl (13.5-18.0); LYMPH # 1.6 (1.2-3.4); LYMPH % 24.7 % (20.0-51.0); MEAN CELL VOLUME 102 fl (80.0-100.0); MEAN CORPUSCULAR HEMOGLOBIN 33 pg (27.0-31.0); MEAN CORPUSCULAR HGB CONC 32 g/dl (33.0-37.0); MEAN PLATELET VOLUME 9.9 fl (7.4-10.4); MONO # 0.6 (0.1-0.6); PLATELET COUNT 210 K/mm3 (130-400); RED BLOOD COUNT 3.51 M/mm3 (4.20-5.60)
[2017-12-21 07:03] LABS: CALCIUM 8.5 mg/dL (8.4-10.2); CREATININE, serum 1.94 mg/dL (0.66-1.25); POTASSIUM 3.8 mmol/L (3.4-5.0)
[2017-12-21 08:12] VITALS: BP 106/55; PULSE 65; TEMP 97.5
[2017-12-21 11:40] VITALS: BP 100/48; PULSE 60; TEMP 98.1
[2017-12-21 12:02] LABS: CREATININE, serum 1.61 mg/dL (0.66-1.25); FRACTIONAL EXCRETION OF NA+ 1.4 %
[2017-12-21 16:07] VITALS: BP 112/47; PULSE 60; TEMP 97.9
[2017-12-21 19:16] VITALS: BP 125/63; PULSE 64; TEMP 97.5
[2017-12-21 23:27] VITALS: BP 128/67; PULSE 66; TEMP 97.7
[2017-12-22 03:33] VITALS: BP 141/59; PULSE 60; TEMP 97.4
[2017-12-22 07:13] LABS: BASO % 0.5 % (0.0-2.0); GRAN # 3.6 (1.4-6.5); GRAN % 64.9 % (42.2-75.2); LYMPH # 1.5 (1.2-3.4); LYMPH % 26.2 % (20.0-51.0); MEAN CELL VOLUME 101 fl (80.0-100.0); MEAN CORPUSCULAR HGB CONC 33 g/dl (33.0-37.0); MEAN PLATELET VOLUME 10.3 fl (7.4-10.4); MONO # 0.5 (0.1-0.6); MONO % 8.2 % (1.7-9.3); PLATELET COUNT 175 K/mm3 (130-400); RED BLOOD COUNT 3.02 M/mm3 (4.20-5.60); REDCELL DISTRIBUTION WIDTH-CV 13.9 % (11.5-14.5)
[2017-12-22 07:22] LABS: HEMATOCRIT 30.6 % (42.0-52.0); MEAN CORPUSCULAR HEMOGLOBIN 33 pg (27.0-31.0)
[2017-12-22 07:35] LABS: CALCIUM 7.9 mg/dL (8.4-10.2); CREATININE, serum 0.93 mg/dL (0.66-1.25); POTASSIUM 3.2 mmol/L (3.4-5.0)
[2017-12-22 09:19] VITALS: BP 137/60; PULSE 64; TEMP 98.7
[2017-12-22 12:12] VITALS: BP 133/59; PULSE 66; TEMP 98
[2017-12-22 16:28] VITALS: BP 125/68; BP 145/75; PULSE 101; PULSE 66; TEMP 97.5; TEMP 98.5
[2017-12-22 20:07] VITALS: BP 137/81; PULSE 63; TEMP 98.4
[2017-12-22 23:31] VITALS: BP 145/60; PULSE 64; TEMP 98.3
[2017-12-23 04:57] VITALS: BP 133/76; PULSE 63; TEMP 97.6
[2017-12-23 06:46] LABS: BASO # 0.1 (0.0-0.2); GRAN # 3.3 (1.4-6.5); GRAN % 63.8 % (42.2-75.2); HEMATOCRIT 33.1 % (42.0-52.0); HEMOGLOBIN 10.8 g/dl (13.5-18.0); LYMPH # 1.3 (1.2-3.4); LYMPH % 25.6 % (20.0-51.0); MEAN CELL VOLUME 101 fl (80.0-100.0); MEAN CORPUSCULAR HEMOGLOBIN 33 pg (27.0-31.0); MEAN CORPUSCULAR HGB CONC 33 g/dl (33.0-37.0); MONO # 0.5 (0.1-0.6); MONO % 9.4 % (1.7-9.3); PLATELET COUNT 198 K/mm3 (130-400); RED BLOOD COUNT 3.29 M/mm3 (4.20-5.60); REDCELL DISTRIBUTION WIDTH-CV 13.9 % (11.5-14.5)
[2017-12-23 06:50] LABS: CALCIUM 8.4 mg/dL (8.4-10.2); CREATININE, serum 0.71 mg/dL (0.66-1.25); POTASSIUM 3.5 mmol/L (3.4-5.0)
[2017-12-23 07:55] VITALS: BP 141/67; PULSE 74; TEMP 97.8
[2017-12-23 12:25] VITALS: BP 115/63; PULSE 76; TEMP 98.5
== END 2017-12-23 14:07 | disposition home or self-care (01) ==
LOC: COL.ER 15:06 → MEDICAL 18:04
PROVIDERS: Emergency Medicine; Family Medicine; Nurse Practitioner Family; Physician Assistant
DX: R53.1 Weakness (principal); N17.9 Acute kidney failure, unspecified; E11.649 Type 2 diabetes mellitus with hypoglycemia without coma; I25.10 Atherosclerotic heart disease of native coronary artery without angina pectoris; E87.6 Hypokalemia; N39.0 Urinary tract infection, site not specified; E86.0 Dehydration; R63.0 Anorexia; I10 Essential (primary) hypertension; G20 Parkinson's disease; E78.5 Hyperlipidemia, unspecified; N40.0 Benign prostatic hyperplasia without lower urinary tract symptoms; E03.9 Hypothyroidism, unspecified; G47.33 Obstructive sleep apnea (adult) (pediatric); Z79.82 Long term (current) use of aspirin; Z79.84 Long term (current) use of oral hypoglycemic drugs; Z79.01 Long term (current) use of anticoagulants; Z86.711 Personal history of pulmonary embolism; Z87.891 Personal history of nicotine dependence; Z82.49 Family history of ischemic heart disease and other diseases of the circulatory system
CPT/HCPCS: 99222-AI; 99232-AI; G0378; G8978-GP; G8979-GP; G8987-GO; G8988-GO; J0696; J3370; J7030; J7042; J7050

== ENCOUNTER 2018-01-04 01:24 | Emergency (ER) | payer MEDICARE, OTHER ==
[~2018-01-04] VITALS: Ht 177.8 cm; Wt 89.1 kg
[~2018-01-04 01:24] MED LIST changes: +BIOTENE MOIST44.3 ML; +PRINCIPEN500 MG PO; +SELSUN 120 ML120 ML; +ZOFRAN 4MG T4 MG/TAB PO
[2018-01-04 01:29] VITALS: TEMP 98.9
[2018-01-04] MEDS ORDERED: SYNTHROID0.05 MG/TA PO (02:17)
[2018-01-04 03:00] VITALS: BP 127/65; PULSE 95
== END 2018-01-04 02:45 | disposition home or self-care (01) ==
LOC: COL.ER 01:24
DX: S70.02XA Contusion of left hip, initial encounter (principal); I25.10 Atherosclerotic heart disease of native coronary artery without angina pectoris; E11.9 Type 2 diabetes mellitus without complications; I10 Essential (primary) hypertension; G20 Parkinson's disease; F02.80 Dementia in other diseases classified elsewhere, unspecified severity, without behavioral disturbance, psychotic disturbance, mood disturbance, and anxiety; Z79.82 Long term (current) use of aspirin; W19.XXXA Unspecified fall, initial encounter

== ENCOUNTER → 2018-02-06 | Outpatient (CLI) | payer MEDICARE, OTHER ==
[~2018-02-06] MED LIST changes: +SYNTHROID0.05 MG/TA PO
[2018-02-06 10:40] LABS: CALCIUM 8.7 mg/dL (8.4-10.2); CREATININE, serum 0.9 mg/dL (0.66-1.25)
== END ==
LOC: ZLAB.STJ 07:35
PROVIDERS: Internal Medicine
DX: N17.9 Acute kidney failure, unspecified (principal)

== ENCOUNTER → 2018-03-01 | Outpatient (CLI) | payer MEDICARE, OTHER ==
[2018-03-01 09:59] LABS: CALCIUM 8.8 mg/dL (8.4-10.2); CREATININE, serum 0.93 mg/dL (0.66-1.25); POTASSIUM 4.5 mmol/L (3.4-5.0)
== END ==
LOC: ZLAB.STJ 09:44
PROVIDERS: Nurse Practitioner
DX: N17.9 Acute kidney failure, unspecified (principal)

== ENCOUNTER → 2018-05-15 | Outpatient (REF) ==
[2018-05-15 09:52] LABS: CALCIUM 8.5 mg/dL (8.4-10.2); CREATININE, serum 0.85 mg/dL (0.66-1.25); POTASSIUM 5.1 mmol/L (3.4-5.0)
== END ==
LOC: ZLAB.STJ 09:27
PROVIDERS: Internal Medicine
DX: I25.10 Atherosclerotic heart disease of native coronary artery without angina pectoris (principal)

== ENCOUNTER 2018-05-20 13:13 | Inpatient (IN) | payer MEDICARE, OTHER ==
[~2018-05-20] VITALS: Ht 172.7 cm; Wt 132.9 kg
[2018-05-20 13:29] LABS: BASO # 0.1 (0.0-0.2); GRAN # 7.8 (1.4-6.5); GRAN % 77.4 % (42.2-75.2); LYMPH # 1.4 (1.2-3.4); LYMPH % 13.6 % (20.0-51.0); MEAN CELL VOLUME 100 fl (80.0-100.0); MEAN CORPUSCULAR HGB CONC 31 g/dl (33.0-37.0); MONO # 0.8 (0.1-0.6); MONO % 7.5 % (1.7-9.3); PLATELET COUNT 236 K/mm3 (130-400); RED BLOOD COUNT 3.04 M/mm3 (4.20-5.60); REDCELL DISTRIBUTION WIDTH-CV 13.8 % (11.5-14.5)
[2018-05-20 13:30] LABS: HEMATOCRIT 30.5 % (42.0-52.0); HEMOGLOBIN 9.5 g/dl (13.5-18.0); MEAN CORPUSCULAR HEMOGLOBIN 31 pg (27.0-31.0)
[2018-05-20 13:40] LABS: COLLECTION METHOD CATHETER
[2018-05-20 13:42] LABS: ALBUMIN 3.7 gm/dL (3.5-5.0); BILIRUBIN,TOTAL 0.2 mg/dL (0.0-1.0); CALCIUM 8.1 mg/dL (8.4-10.2); CREATININE, serum 1.08 mg/dL (0.66-1.25); PHOSPHOROUS 4.1 mg/dL (2.5-4.5); POTASSIUM 4.4 mmol/L (3.4-5.0); TOTAL PROTEIN 6.9 gm/dL (6.4-8.2)
[2018-05-20 13:45] LABS: PH 5 (5-8); SQUAMOUS EPITHELIAL None Seen /hpf; URINE APPEARANCE Clear; URINE BACTERIA None Seen /hpf; URINE BILIRUBIN Negative (NEGATIVE); URINE BLOOD Negative (NEGATIVE); URINE COLOR Yellow; URINE GLUCOSE Negative (NEGATIVE); URINE KETONE Negative (NEGATIVE); URINE LEUKOCYTE ESTERASE Negative (NEGATIVE); URINE NITRATE Negative (NEGATIVE); URINE PROTEIN(semi-quant) Negative (NEGATIVE); URINE RBC 0-2 /hpf; URINE UROBILINOGEN Negative (NEGATIVE)
[2018-05-20] MEDS ORDERED: AQUAPHOR OINTM396 GM TP (13:52)
[2018-05-20 13:53] LABS: INR 1.1 (0.8-3.0); TROPONIN-I 0.018 ng/mL (0.000-0.034)
[2018-05-20] MEDS ORDERED: COZAAR 50MG50 MG/TAB PO (13:53)
[2018-05-20] MEDS ORDERED: MULTI VITAMINS1 TAB PO (13:53)
[2018-05-20] MEDS ORDERED: ARICEPT10 MG PO (13:54)
[2018-05-20] MEDS ORDERED: REQUIP XL6 MG PO (13:55)
[2018-05-20] MEDS ORDERED: CEPHALEXIN500 M1 PO (13:56)
[2018-05-20] MEDS ORDERED: LASIX 40MG TABL40 MG PO (13:56)
[2018-05-20] MEDS ORDERED: SYSTANE BALANCE10 M1 OU (13:57)
[2018-05-20 13:59] LABS: PARTIAL THROMBOPLASTIN TIME 33.9 SECONDS (26.0-37.0)
[2018-05-20 17:53] VITALS: BP 126/53; PULSE 86; TEMP 98.3
[2018-05-20 20:50] VITALS: BP 127/55; PULSE 84; TEMP 97.7
[2018-05-21] VITALS (7 sets, daily range): BP systolic 114–151; BP diastolic 55–66; PULSE 81–91; TEMP 97.6–98.9
[2018-05-21 06:44] LABS: BASO # 0.1 (0.0-0.2); BASO % 0.6 % (0.0-2.0); GRAN # 9.6 (1.4-6.5); GRAN % 80.2 % (42.2-75.2); HEMATOCRIT 30.6 % (42.0-52.0); HEMOGLOBIN 9.3 g/dl (13.5-18.0); LYMPH # 1.4 (1.2-3.4); LYMPH % 11.6 % (20.0-51.0); MEAN CELL VOLUME 101 fl (80.0-100.0); MEAN CORPUSCULAR HEMOGLOBIN 31 pg (27.0-31.0); MEAN CORPUSCULAR HGB CONC 30 g/dl (33.0-37.0); MEAN PLATELET VOLUME 9.5 fl (7.4-10.4); MONO # 0.9 (0.1-0.6); MONO % 7.2 % (1.7-9.3); PLATELET COUNT 248 K/mm3 (130-400); RED BLOOD COUNT 3.02 M/mm3 (4.20-5.60); REDCELL DISTRIBUTION WIDTH-CV 13.6 % (11.5-14.5)
[2018-05-21 06:57] LABS: CREATININE, serum 0.96 mg/dL (0.66-1.25)
[2018-05-21 07:05] LABS: TROPONIN-I 0.017 ng/mL (0.000-0.034)
[2018-05-21 23:49] LABS: FOLATE (FOLIC ACID) 7.5 ng/mL (7.0-31.4)
[2018-05-22 03:38] VITALS: BP 134/56; PULSE 97; TEMP 99.1
[2018-05-22 06:50] LABS: BASO # 0.1 (0.0-0.2); BASO % 0.6 % (0.0-2.0); GRAN # 11.4 (1.4-6.5); GRAN % 83.9 % (42.2-75.2); LYMPH # 0.9 (1.2-3.4); LYMPH % 6.6 % (20.0-51.0); MEAN CELL VOLUME 99 fl (80.0-100.0); MEAN CORPUSCULAR HGB CONC 32 g/dl (33.0-37.0); MEAN PLATELET VOLUME 9.8 fl (7.4-10.4); MONO # 1.1 (0.1-0.6); MONO % 8.2 % (1.7-9.3); PLATELET COUNT 243 K/mm3 (130-400); RED BLOOD COUNT 3.07 M/mm3 (4.20-5.60); REDCELL DISTRIBUTION WIDTH-CV 13.7 % (11.5-14.5)
[2018-05-22 06:52] LABS: HEMATOCRIT 30.4 % (42.0-52.0); HEMOGLOBIN 9.6 g/dl (13.5-18.0); MEAN CORPUSCULAR HEMOGLOBIN 31 pg (27.0-31.0)
[2018-05-22 06:58] LABS: CREATININE, serum 0.91 mg/dL (0.66-1.25)
[2018-05-22 08:08] VITALS: BP 112/54; PULSE 100; TEMP 99
[2018-05-22 12:22] VITALS: BP 116/49; PULSE 87; TEMP 98.9
[2018-05-22 15:33] VITALS: BP 114/56; PULSE 82; TEMP 98.8
[2018-05-22 20:00] VITALS: BP 110/52; PULSE 73; TEMP 97.8
[2018-05-23] VITALS: BP 111/53; PULSE 73; TEMP 97.7
[2018-05-23 05:24] VITALS: BP 106/49; PULSE 78; TEMP 97.7
[2018-05-23 08:06] VITALS: BP 124/79; PULSE 83; TEMP 97.5
[2018-05-23 08:27] LABS: BASO # 0.1 (0.0-0.2); BASO % 0.6 % (0.0-2.0); GRAN # 6.3 (1.4-6.5); GRAN % 77.7 % (42.2-75.2); LYMPH # 1.2 (1.2-3.4); LYMPH % 14.4 % (20.0-51.0); MEAN CELL VOLUME 99 fl (80.0-100.0); MEAN CORPUSCULAR HGB CONC 32 g/dl (33.0-37.0); MEAN PLATELET VOLUME 9.5 fl (7.4-10.4); MONO # 0.6 (0.1-0.6); MONO % 6.9 % (1.7-9.3); PLATELET COUNT 215 K/mm3 (130-400); RED BLOOD COUNT 3.04 M/mm3 (4.20-5.60); REDCELL DISTRIBUTION WIDTH-CV 13.6 % (11.5-14.5)
[2018-05-23 08:28] LABS: HEMATOCRIT 30.2 % (42.0-52.0); HEMOGLOBIN 9.5 g/dl (13.5-18.0); MEAN CORPUSCULAR HEMOGLOBIN 31 pg (27.0-31.0)
[2018-05-23 08:36] LABS: CALCIUM 8.1 mg/dL (8.4-10.2); CREATININE, serum 0.98 mg/dL (0.66-1.25); POTASSIUM 3.7 mmol/L (3.4-5.0)
[2018-05-23] MEDS ORDERED: BUMEX 1MG TA1 MG/TA1 PO (09:36)
[2018-05-23] MEDS ORDERED: COREG 3.123.125 MG/T PO (09:36)
[2018-05-23] MEDS ORDERED: NOVLOG SQ (09:37)
[2018-05-23 10:32] VITALS: BP 124/79; PULSE 83; TEMP 97.5
== END 2018-05-23 13:07 | DRG 292 ==
LOC: COL.ER 13:13 → MEDICAL 15:05 → COL.ER 15:05 → MEDICAL 15:05
PROVIDERS: Emergency Medicine; Physician Assistant
DX: I11.0 Hypertensive heart disease with heart failure (principal); Z68.41 Body mass index [BMI] 40.0-44.9, adult; I50.33 Acute on chronic diastolic (congestive) heart failure; Z66 Do not resuscitate; I25.10 Atherosclerotic heart disease of native coronary artery without angina pectoris; Z95.5 Presence of coronary angioplasty implant and graft; G20 Parkinson's disease; E11.42 Type 2 diabetes mellitus with diabetic polyneuropathy; F03.90 Unspecified dementia, unspecified severity, without behavioral disturbance, psychotic disturbance, mood disturbance, and anxiety; Z87.891 Personal history of nicotine dependence; Z86.711 Personal history of pulmonary embolism; Z79.01 Long term (current) use of anticoagulants; D64.9 Anemia, unspecified; E66.9 Obesity, unspecified
CPT/HCPCS: 99222-AI; 99232-AI; 99239; G8978-GP; G8979-GP; G8987-GO; G8988-GO; J1815; J1940

== ENCOUNTER 2018-05-24 09:12 | Observation (INO) | payer MEDICARE, OTHER ==
[~2018-05-24] VITALS: Ht 172.7 cm; Wt 143.0 kg
[~2018-05-24 09:12] MED LIST changes: +AQUAPHOR OINTM396 GM TP; +ARICEPT10 MG PO; +BUMEX 1MG TA1 MG/TA1 PO; +CEPHALEXIN500 M1 PO; +COREG 3.123.125 MG/T PO; +COZAAR 50MG50 MG/TAB PO; +MULTI VITAMINS1 TAB PO; +SYSTANE BALANCE10 M1 OU
[2018-05-24 09:28] LABS: BASO # 0.1 (0.0-0.2); BASO % 0.7 % (0.0-2.0); GRAN # 13.9 (1.4-6.5); GRAN % 76.2 % (42.2-75.2); HEMOGLOBIN 10.2 g/dl (13.5-18.0); LYMPH # 2.7 (1.2-3.4); MEAN CELL VOLUME 100 fl (80.0-100.0); MEAN CORPUSCULAR HEMOGLOBIN 31 pg (27.0-31.0); MEAN CORPUSCULAR HGB CONC 31 g/dl (33.0-37.0); MEAN PLATELET VOLUME 9.6 fl (7.4-10.4); MONO # 1.4 (0.1-0.6); MONO % 7.6 % (1.7-9.3); PLATELET COUNT 296 K/mm3 (130-400); RED BLOOD COUNT 3.27 M/mm3 (4.20-5.60); REDCELL DISTRIBUTION WIDTH-CV 13.6 % (11.5-14.5)
[2018-05-24 09:29] LABS: HEMATOCRIT 32.7 % (42.0-52.0)
[2018-05-24 09:48] LABS: BILIRUBIN,TOTAL 0.6 mg/dL (0.0-1.0); CALCIUM 8.1 mg/dL (8.4-10.2); CREATININE, serum 0.97 mg/dL (0.66-1.25); POTASSIUM 4.4 mmol/L (3.4-5.0); TOTAL PROTEIN 7.6 gm/dL (6.4-8.2)
[2018-05-24 09:50] LABS: ARTERIAL BLD GAS O2 SATURATION 93.5 % (92-100); ARTERIAL BLD GAS TCO2 CT 30.4; ARTERIAL BLOOD GAS BASE EXCESS 1.3 (-2-2); ARTERIAL BLOOD GAS HCO3 28.6 meq/L (22-26); ARTERIAL BLOOD GAS PCO2 59.6 mmHg (35-45); ARTERIAL BLOOD GAS PO2 79.6 mmHg (80-100)
[2018-05-24 11:32] LABS: COLLECTION METHOD CATHETER
[2018-05-24 11:38] LABS: PH 5 (5-8); SQUAMOUS EPITHELIAL None Seen /hpf; URINE APPEARANCE Clear; URINE BACTERIA None Seen /hpf; URINE BILIRUBIN Negative (NEGATIVE); URINE BLOOD Negative (NEGATIVE); URINE COLOR Yellow; URINE GLUCOSE Negative (NEGATIVE); URINE KETONE Negative (NEGATIVE); URINE LEUKOCYTE ESTERASE Negative (NEGATIVE); URINE NITRATE Negative (NEGATIVE); URINE PROTEIN(semi-quant) Negative (NEGATIVE); URINE RBC 0-2 /hpf; URINE UROBILINOGEN Negative (NEGATIVE)
[2018-05-24 16:05] VITALS: BP 123/60; PULSE 78; TEMP 98.3
[2018-05-24 19:58] LABS: ARTERIAL BLD GAS O2 SATURATION 97.4 % (92-100); ARTERIAL BLD GAS TCO2 CT 34.2; ARTERIAL BLOOD GAS BASE EXCESS 2.8 (-2-2); ARTERIAL BLOOD GAS HCO3 31.9 meq/L (22-26); ARTERIAL BLOOD GAS pH 7.24 (7.35-7.45)
[2018-05-24 19:59] LABS: ARTERIAL BLOOD GAS PCO2 75.4 mmHg (35-45); ARTERIAL BLOOD GAS PO2 123.8 mmHg (80-100)
[2018-05-24 20:28] LABS: BILIRUBIN,TOTAL 0.6 mg/dL (0.0-1.0); CREATININE, serum 0.88 mg/dL (0.66-1.25); MAGNESIUM 2.2 mg/dL (1.6-2.3); POTASSIUM 4.1 mmol/L (3.4-5.0); TOTAL PROTEIN 7.6 gm/dL (6.4-8.2)
[2018-05-24 20:31] VITALS: BP 98/47; PULSE 80; TEMP 99.2
[2018-05-24 20:57] LABS: BASO # 0.1 (0.0-0.2); BASO % 0.5 % (0.0-2.0); GRAN # 11.9 (1.4-6.5); GRAN % 81.6 % (42.2-75.2); HEMOGLOBIN 10.4 g/dl (13.5-18.0); LYMPH # 1.6 (1.2-3.4); LYMPH % 10.9 % (20.0-51.0); MEAN CELL VOLUME 99 fl (80.0-100.0); MEAN CORPUSCULAR HEMOGLOBIN 31 pg (27.0-31.0); MEAN CORPUSCULAR HGB CONC 32 g/dl (33.0-37.0); MEAN PLATELET VOLUME 9.7 fl (7.4-10.4); MONO % 6.7 % (1.7-9.3); PLATELET COUNT 275 K/mm3 (130-400); RED BLOOD COUNT 3.32 M/mm3 (4.20-5.60); REDCELL DISTRIBUTION WIDTH-CV 13.7 % (11.5-14.5)
[2018-05-25 20:30] VITALS: BP 156/121; PULSE 90
== END 2018-05-24 22:40 | disposition critical access hospital (66) ==
LOC: COL.ER 09:12 → MEDICAL 13:41
PROVIDERS: Emergency Medicine; Internal Medicine; Nurse Practitioner
DX: I11.0 Hypertensive heart disease with heart failure (principal); I50.31 Acute diastolic (congestive) heart failure; R06.02 Shortness of breath; E11.40 Type 2 diabetes mellitus with diabetic neuropathy, unspecified; Z79.4 Long term (current) use of insulin; I25.10 Atherosclerotic heart disease of native coronary artery without angina pectoris; Z95.5 Presence of coronary angioplasty implant and graft; G20 Parkinson's disease; F02.80 Dementia in other diseases classified elsewhere, unspecified severity, without behavioral disturbance, psychotic disturbance, mood disturbance, and anxiety; F32.9 Major depressive disorder, single episode, unspecified; G47.33 Obstructive sleep apnea (adult) (pediatric); N40.0 Benign prostatic hyperplasia without lower urinary tract symptoms; Z87.891 Personal history of nicotine dependence; Z79.01 Long term (current) use of anticoagulants; Z79.899 Other long term (current) drug therapy; I35.0 Nonrheumatic aortic (valve) stenosis; Z79.82 Long term (current) use of aspirin; E03.9 Hypothyroidism, unspecified; D53.9 Nutritional anemia, unspecified
CPT/HCPCS: 99222-AI; 99239; G0378; J1815; J1940; J2543; J7030; Q9967

== ENCOUNTER → 2018-07-03 | Outpatient (CLI) | payer MEDICARE, OTHER | LOC: ZLAB.STJ 10:35 | DX: E11.42 Type 2 diabetes mellitus with diabetic polyneuropathy (principal) ==

== ENCOUNTER 2018-07-17 11:56 | Emergency (ER) | payer MEDICARE, OTHER ==
[~2018-07-17] VITALS: Ht 177.8 cm; Wt 113.6 kg
[2018-07-17 12:00] VITALS: TEMP 97.2
[2018-07-17 12:12] LABS: BASO # 0.1 (0.0-0.2); BASO % 0.4 % (0.0-2.0); GRAN # 9.8 (1.4-6.5); GRAN % 81.4 % (42.2-75.2); LYMPH % 7.9 % (20.0-51.0); MEAN CELL VOLUME 93 fl (80.0-100.0); MEAN CORPUSCULAR HGB CONC 32 g/dl (33.0-37.0); MEAN PLATELET VOLUME 9.8 fl (7.4-10.4); MONO # 1.2 (0.1-0.6); PLATELET COUNT 219 K/mm3 (130-400); REDCELL DISTRIBUTION WIDTH-CV 15.3 % (11.5-14.5)
[2018-07-17 12:18] LABS: HEMATOCRIT 30.8 % (42.0-52.0); HEMOGLOBIN 9.7 g/dl (13.5-18.0); MEAN CORPUSCULAR HEMOGLOBIN 29 pg (27.0-31.0)
[2018-07-17 12:21] LABS: ALANINE AMINOTRANSFERASE 15 U/L (21-72); ALBUMIN 4.1 gm/dL (3.5-5.0); ALKALINE PHOSPHATASE 79 U/L (50-136); ANION GAP 9 mmol/L (7-16); AST,SGOT 23 U/L (15-37); BILIRUBIN,TOTAL 0.7 mg/dL (0.0-1.0); BLOOD UREA NITROGEN 21 mg/dL (9-20); CALCIUM 8.9 mg/dL (8.4-10.2); CARBON DIOXIDE 30 mmol/L (22-30); CHLORIDE 97 mmol/L (98-107); CREATININE, serum 0.99 mg/dL (0.66-1.25); GLUCOSE 144 mg/dL (74-106); LIPASE 20 U/L (23-300); POTASSIUM 4.2 mmol/L (3.4-5.0); SODIUM 136 mmol/L (137-145); TOTAL PROTEIN 7.7 gm/dL (6.4-8.2)
[2018-07-17 12:22] LABS: INR 1.6 (0.8-3.0); PROTHROMBIN TIME 18.1 SECONDS (9.7-12.8)
[2018-07-17 12:33] LABS: TROPONIN-I < 0.012 ng/mL (0.000-0.034)
[2018-07-17 13:52] LABS: COLLECTION METHOD CATHETER
[2018-07-17 14:07] LABS: MUCOUS Present /lpf; PH 6 (5-8); SQUAMOUS EPITHELIAL 0-2 /hpf; URINE APPEARANCE Clear; URINE BACTERIA None Seen /hpf; URINE BILIRUBIN Negative (NEGATIVE); URINE BLOOD Negative (NEGATIVE); URINE COLOR Yellow; URINE GLUCOSE Negative (NEGATIVE); URINE KETONE Trace (NEGATIVE); URINE LEUKOCYTE ESTERASE Negative (NEGATIVE); URINE NITRATE Negative (NEGATIVE); URINE PROTEIN(semi-quant) Negative (NEGATIVE); URINE RBC 0-2 /hpf; URINE UROBILINOGEN >=4.0 mg/dL (NEGATIVE); URINE WBC 0-2 /hpf
[2018-07-17] MEDS ORDERED: GLUCOTROL 5M5 MG/TAB PO (15:25)
[2018-07-17] MEDS ORDERED: LASIX 40MG TABL40 MG PO (15:25)
[2018-07-17] MEDS ORDERED: LIPITOR 10MG10 MG PO (15:28)
[2018-07-17 17:15] VITALS: BP 121/60; PULSE 68
== END 2018-07-17 17:00 ==
LOC: COL.ER 11:56
PROVIDERS: Emergency Medicine
DX: R53.81 Other malaise (principal); I11.0 Hypertensive heart disease with heart failure; I50.9 Heart failure, unspecified; E11.9 Type 2 diabetes mellitus without complications; Z87.891 Personal history of nicotine dependence; Z95.5 Presence of coronary angioplasty implant and graft; Z86.711 Personal history of pulmonary embolism; Z79.82 Long term (current) use of aspirin; Z79.84 Long term (current) use of oral hypoglycemic drugs
CPT/HCPCS: J7030; Q9967

== ENCOUNTER → 2018-07-26 | Outpatient (CLI) | payer MEDICARE, OTHER ==
[~2018-07-26] MED LIST changes: +GLUCOTROL 5M5 MG/TAB PO
== END ==
LOC: ZLAB.STJ 19:06
DX: E83.42 Hypomagnesemia (principal)

== ENCOUNTER → 2018-09-05 | Outpatient (REF) ==
[2018-09-05 15:14] LABS: CALCIUM 9.3 mg/dL (8.4-10.2); CREATININE, serum 0.92 mg/dL (0.66-1.25); POTASSIUM 4.9 mmol/L (3.4-5.0)
== END ==
LOC: ZLAB.STJ 14:56
PROVIDERS: Internal Medicine
DX: R79.89 Other specified abnormal findings of blood chemistry (principal)

== ENCOUNTER → 2018-10-31 | Outpatient (CLI) | payer MEDICARE, OTHER | LOC: ZLAB.STJ 11:16 | DX: E03.9 Hypothyroidism, unspecified (principal) ==

== ENCOUNTER → 2018-11-13 | Outpatient (CLI) | payer MEDICARE, OTHER ==
[2018-11-13 18:05] LABS: BASO # 0.1 (0.0-0.2); BASO % 0.7 % (0.0-2.0); GRAN # 6.1 (1.4-6.5); GRAN % 72.8 % (42.2-75.2); HEMOGLOBIN 10.8 g/dl (13.5-18.0); LYMPH # 1.4 (1.2-3.4); LYMPH % 16.3 % (20.0-51.0); MEAN CELL VOLUME 100 fl (80.0-100.0); MEAN CORPUSCULAR HEMOGLOBIN 31 pg (27.0-31.0); MEAN CORPUSCULAR HGB CONC 31 g/dl (33.0-37.0); MEAN PLATELET VOLUME 9.8 fl (7.4-10.4); MONO # 0.8 (0.1-0.6); MONO % 9.5 % (1.7-9.3); PLATELET COUNT 251 K/mm3 (130-400); REDCELL DISTRIBUTION WIDTH-CV 16.1 % (11.5-14.5)
[2018-11-13 18:54] LABS: ALBUMIN 4.1 gm/dL (3.5-5.0); BILIRUBIN,TOTAL 0.3 mg/dL (0.0-1.0); CALCIUM 9.5 mg/dL (8.4-10.2); CREATININE, serum 1.06 mg/dL (0.66-1.25); POTASSIUM 5.1 mmol/L (3.4-5.0); TOTAL PROTEIN 7.2 gm/dL (6.4-8.2)
[2018-11-13 19:23] LABS: THYROID STIMULATING HORMONE 3.36 uIU/mL (0.465-4.680)
== END ==
LOC: COL.LAB 17:25 → ZLAB.STJ 17:25
PROVIDERS: Internal Medicine
DX: J96.22 Acute and chronic respiratory failure with hypercapnia (principal); E03.9 Hypothyroidism, unspecified; I50.33 Acute on chronic diastolic (congestive) heart failure; E11.9 Type 2 diabetes mellitus without complications

== ENCOUNTER → 2018-11-19 | Outpatient (CLI) | payer MEDICARE, OTHER ==
[~2018-11-19] MED LIST changes: +ANTIVERT 12.512.5 MG PO; +GLUCOPHAGE850 MG/TAB PO; +WELLBUTRIN SR150 M1 PO; +ZEBETA10 MG PO
[2018-11-19 10:34] LABS: BASO # 0.1 (0.0-0.2); BASO % 0.5 % (0.0-2.0); GRAN # 7.3 (1.4-6.5); GRAN % 77.8 % (42.2-75.2); HEMATOCRIT 33.6 % (42.0-52.0); HEMOGLOBIN 10.5 g/dl (13.5-18.0); LYMPH # 1.4 (1.2-3.4); LYMPH % 14.3 % (20.0-51.0); MEAN CELL VOLUME 100 fl (80.0-100.0); MEAN CORPUSCULAR HEMOGLOBIN 31 pg (27.0-31.0); MEAN CORPUSCULAR HGB CONC 31 g/dl (33.0-37.0); MEAN PLATELET VOLUME 9.8 fl (7.4-10.4); MONO # 0.7 (0.1-0.6); MONO % 7.2 % (1.7-9.3); PLATELET COUNT 258 K/mm3 (130-400); RED BLOOD COUNT 3.37 M/mm3 (4.20-5.60)
[2018-11-19 10:42] LABS: CALCIUM 8.9 mg/dL (8.4-10.2); CHOLESTEROL RISK RATIO 5.3; CREATININE, serum 0.81 mg/dL (0.66-1.25); POTASSIUM 4.5 mmol/L (3.4-5.0)
[2018-11-19 11:12] LABS: THYROID STIMULATING HORMONE 4.44 uIU/mL (0.465-4.680)
== END ==
LOC: ZLAB.STJ 10:04
PROVIDERS: Nurse Practitioner
DX: I10 Essential (primary) hypertension (principal); E11.42 Type 2 diabetes mellitus with diabetic polyneuropathy; R94.6 Abnormal results of thyroid function studies; E78.5 Hyperlipidemia, unspecified

== ENCOUNTER → 2018-11-20 | Outpatient (CLI) | payer MEDICARE, OTHER | LOC: COL.VAS 11:06 | DX: I51.7 Cardiomegaly (principal); I35.0 Nonrheumatic aortic (valve) stenosis; I36.1 Nonrheumatic tricuspid (valve) insufficiency; R60.0 Localized edema ==

== ENCOUNTER → 2018-11-29 | Outpatient (CLI) | payer MEDICARE, OTHER ==
[~2018-11-29] MED LIST changes: +OMNICEF 300MG300 MG PO; +PREDNISONE20 MG PO
[2018-11-29 12:03] LABS: MEAN CELL VOLUME 101 fl (80.0-100.0); MEAN CORPUSCULAR HGB CONC 30 g/dl (33.0-37.0); MEAN PLATELET VOLUME 9.5 fl (7.4-10.4); PLATELET COUNT 383 K/mm3 (130-400); RED BLOOD COUNT 3.13 M/mm3 (4.20-5.60); REDCELL DISTRIBUTION WIDTH-CV 15.9 % (11.5-14.5)
[2018-11-29 12:05] LABS: HEMATOCRIT 31.5 % (42.0-52.0); HEMOGLOBIN 9.5 g/dl (13.5-18.0); MEAN CORPUSCULAR HEMOGLOBIN 30 pg (27.0-31.0)
[2018-11-29 12:09] LABS: CALCIUM 8.9 mg/dL (8.4-10.2); CREATININE, serum 0.98 mg/dL (0.66-1.25); POTASSIUM 4.7 mmol/L (3.4-5.0)
[2018-11-29 12:16] LABS: EOSINOPHIL 3 % (0-4); HYPOCHROMIA 3+; LYMPHOCYTE 21 % (20.0-51.0); NEUTROPHILS 69 % (42.0-75.2); PLATELET ESTIMATE NORMAL (NORMAL)
[2018-11-29 12:17] LABS: ANISOCYTOSIS 1+; POLYCHROMASIA 1+
== END ==
LOC: ZLAB.STJ 10:27
PROVIDERS: Internal Medicine
DX: I50.33 Acute on chronic diastolic (congestive) heart failure (principal); Z95.5 Presence of coronary angioplasty implant and graft; Z86.711 Personal history of pulmonary embolism

== ENCOUNTER → 2018-12-11 | Outpatient (REF) ==
[2018-12-11 10:07] LABS: MEAN CELL VOLUME 101 fl (80.0-100.0); MEAN CORPUSCULAR HGB CONC 31 g/dl (33.0-37.0); MEAN PLATELET VOLUME 9.5 fl (7.4-10.4); PLATELET COUNT 214 K/mm3 (130-400); RED BLOOD COUNT 3.16 M/mm3 (4.20-5.60)
[2018-12-11 10:31] LABS: HEMATOCRIT 31.9 % (42.0-52.0); HEMOGLOBIN 9.9 g/dl (13.5-18.0); MEAN CORPUSCULAR HEMOGLOBIN 31 pg (27.0-31.0)
== END ==
LOC: ZLAB.STJ 09:56
PROVIDERS: Internal Medicine
DX: Z01.89 Encounter for other specified special examinations (principal)

== ENCOUNTER 2019-01-05 23:22 | Inpatient (IN) | payer MEDICARE, OTHER ==
[~2019-01-05] VITALS: Ht 175.3 cm; Wt 123.1 kg
[2019-01-06] VITALS (12 sets, daily range): BP systolic 92–136; BP diastolic 48–75; PULSE 71–83; TEMP 97–99.8
[2019-01-06 00:59] LABS: BASO % 0.4 % (0.0-2.0); GRAN # 5.3 (1.4-6.5); GRAN % 71.7 % (42.2-75.2); HEMOGLOBIN 10.8 g/dl (13.5-18.0); LYMPH # 1.4 (1.2-3.4); LYMPH % 18.5 % (20.0-51.0); MEAN CELL VOLUME 102 fl (80.0-100.0); MEAN CORPUSCULAR HEMOGLOBIN 31 pg (27.0-31.0); MEAN CORPUSCULAR HGB CONC 30 g/dl (33.0-37.0); MEAN PLATELET VOLUME 9.1 fl (7.4-10.4); MONO # 0.6 (0.1-0.6); MONO % 8.3 % (1.7-9.3); PLATELET COUNT 199 K/mm3 (130-400); RED BLOOD COUNT 3.49 M/mm3 (4.20-5.60); REDCELL DISTRIBUTION WIDTH-CV 15.1 % (11.5-14.5)
[2019-01-06 01:01] LABS: HEMATOCRIT 35.6 % (42.0-52.0)
[2019-01-06 01:08] LABS: INR 1.1 (0.8-3.0); PROTHROMBIN TIME 12.9 SECONDS (9.7-12.8)
[2019-01-06 01:14] LABS: ALANINE AMINOTRANSFERASE < 6 U/L (21-72); ALBUMIN 4.3 gm/dL (3.5-5.0); ALKALINE PHOSPHATASE 75 U/L (50-136); ANION GAP 11 mmol/L (7-16); AST,SGOT 23 U/L (15-37); BILIRUBIN,TOTAL 0.2 mg/dL (0.0-1.0); BLOOD UREA NITROGEN 31 mg/dL (9-20); CALCIUM 9.3 mg/dL (8.4-10.2); CARBON DIOXIDE 33 mmol/L (22-30); CHLORIDE 97 mmol/L (98-107); GLUCOSE 97 mg/dL (74-106); POTASSIUM 4.6 mmol/L (3.4-5.0); SODIUM 141 mmol/L (137-145); TOTAL PROTEIN 7.4 gm/dL (6.4-8.2)
[2019-01-06] MEDS ORDERED: NOVOLOG 100U100 U/M1 (01:43)
[2019-01-06] MEDS ORDERED: WELLBUTRIN SR150 M1 PO (01:45)
--- NOTE | 2019-01-06 05:00 | NUR ---
Inserted #16Fr capone catheter without problem, return of clear yellow urine, balloon inflated with 10cc sterile water. Secured to left thigh and placed to BSD. Patient tolerated procedure without problem.
--- NOTE | 2019-01-06 05:42 | NUR ---
PT ADMITTED WITH HIP Fx. MORPHINE FOR PAIN. SEE 5 PAGE ADMISSION ASSESSMENT.
--- NOTE | 2019-01-06 06:59 | NUR ---
REPORT FROM BAL MCMANUS.
[2019-01-06 10:48] LABS: CREATININE, serum 1.29 mg/dL (0.66-1.25); POTASSIUM 5.1 mmol/L (3.4-5.0)
--- NOTE | 2019-01-06 10:51 | NUR ---
DR. VASQUEZ IN TO SEE PATIENT PRIOR TO LEAVING FLOOR. DR ONTIVEROS NOTIFIED BY REPORTING NURSE OF PLAVIX AND XARELTO DOSE ON 01/05/19. PT TO SURGERY PER BED WITH ALICE AT THIS TIME.
--- NOTE | 2019-01-06 14:42 | NUR ---
PATIENT TO ROOM AFTER SURGERY WITH REPORT FROM EVERETT MCMANUSTHICKENER OPERATOR. PATIENT RESTING VSS, ICE BAG TO RIGHT HIP, DRESSING CDI GAUZE AND TEGADERM. PT IS SLEEPY. LUNGS CLEAR, BOWEL SOUNDS ACTIVE. NS TO PUMP PER ORDERS.
[2019-01-06 15:12] LABS: COLLECTION METHOD CATHETER
--- NOTE | 2019-01-06 15:23 | NUR ---
ISSA met with the patient to discuss discharge plan. The patient resides at [facility] for long-term care and he reports that he plans to return back there upon discharge. ISSA presented and explained the patient choice form to the patient. The patient chose to return back to [facility] and he gave ISSA his verbal consent. The patient's advanced directives in EMR. ISSA contacted and faxed updates to Reinaldo at [facility]. ISSA to continue to follow.
[2019-01-06 15:24] LABS: MUCOUS Present /lpf; PH 6 (5-8); SQUAMOUS EPITHELIAL None Seen /hpf; URINE APPEARANCE Clear; URINE BACTERIA None Seen /hpf; URINE BILIRUBIN Negative (NEGATIVE); URINE BLOOD 1+ (NEGATIVE); URINE COLOR Straw; URINE GLUCOSE Negative (NEGATIVE); URINE KETONE Negative (NEGATIVE); URINE LEUKOCYTE ESTERASE Negative (NEGATIVE); URINE NITRATE Negative (NEGATIVE); URINE PROTEIN(semi-quant) Negative (NEGATIVE); URINE UROBILINOGEN Negative (NEGATIVE)
--- NOTE | 2019-01-06 18:24 | NUR ---
PT RESTING IN BED DOZING ON AND OFF. MILD CONFUSION AT THIS TIME.
--- NOTE | 2019-01-06 19:04 | NUR ---
REPORT TO CHRISTY MCMANUS.
--- NOTE | 2019-01-06 19:30 | NUR ---
Received report from MARIETTA Lemus at shift change. Patient has been resting in bed, is able to state his name but no other sense of direction at this time. Re-orientated frequently to situation. Patient did state he knew he was confused. Speech can be difficult to understand at times. VSS, currently on 2 liters of supplemental O2 via nasal cannula. Denies any pain at this time and does not appear to be in any distress. Repositioned in bed with assist x 2. Tolerated supper with no c/o nausea. Assisted with eating as patient has a lot of shaking of the upper extremities due to Parkinsons. Tegaderm/gauze dressing to right hip x 2, distal dressing has a moderate amount of drainage noted. BLE scds on. Vitale catheter to DD with yellow clear urine draining. BLE with +2 edema noted. IVF infusing with intermittent antibiotic per orders. Fall precautions are in bed; bed is in a low position with bed alarm on and call light within reach.
--- NOTE | 2019-01-06 21:19 | NUR ---
PT REFUSING TO ATTEMPT IS OR CPAP. HE STARTED TO BECOME AGGITATED WHILE I WAS ATTEMPTING TO EXPLAIN AND ENCOURAGE USE.
--- NOTE | 2019-01-06 22:00 | NUR ---
Patient continues to be confused, pulling at his capone catheter and trying to move himself around in bed. When asked what he is doing he states he is trying to get home. Frequent re-orientation continues with patient. Bed remains in a low position with bed alarm on and call light within reach. Patient is visualized from nurses station.
[2019-01-07 04:48] VITALS: BP 119/52; PULSE 75; TEMP 98.9
--- NOTE | 2019-01-07 05:34 | NUR ---
Patient has rested intermittently through the night, continues to be confused with frequent re-orientation. VSS, remains on chronic O2 @ 2 liters. Denies any pain. Tegaderm/gauze dressing to right hip with drainage, no increase through the shift. Vitale catheter remains to DD with yellow clear urine draining. IVF infusing. Repositioned through the night with assist x 2. Bed remains in a low position with bed alarm on and call light within reach.
[2019-01-07 06:13] LABS: BASO # 0.1 (0.0-0.2); BASO % 0.5 % (0.0-2.0); GRAN # 8.5 (1.4-6.5); GRAN % 82.9 % (42.2-75.2); LYMPH % 9.3 % (20.0-51.0); MEAN CELL VOLUME 102 fl (80.0-100.0); MEAN CORPUSCULAR HGB CONC 31 g/dl (33.0-37.0); MEAN PLATELET VOLUME 9.7 fl (7.4-10.4); MONO # 0.7 (0.1-0.6); PLATELET COUNT 155 K/mm3 (130-400); RED BLOOD COUNT 2.75 M/mm3 (4.20-5.60); REDCELL DISTRIBUTION WIDTH-CV 15.3 % (11.5-14.5)
[2019-01-07 06:27] LABS: CALCIUM 7.9 mg/dL (8.4-10.2); CREATININE, serum 1.12 mg/dL (0.66-1.25); POTASSIUM 4.4 mmol/L (3.4-5.0)
[2019-01-07 06:33] LABS: HEMATOCRIT 28.1 % (42.0-52.0); HEMOGLOBIN 8.7 g/dl (13.5-18.0); MEAN CORPUSCULAR HEMOGLOBIN 32 pg (27.0-31.0)
--- NOTE | 2019-01-07 08:00 | NUR ---
PATIENT IS ORIENTED TO PERSON BUT DOES DISPLAY SOME OCCATIONAL CONFUSION/FORGETFULNESS. PATIENT HAS A HX OF DEMENTIA. HIGH FALL RISK, ALARMS INPLACE. LEFT HIP GAUZE NOTED SMALL DRAINAGE TO GAUZE. TEDS & SCD'S TO BLE. POSITIVE PEDAL PULSES TO BLE. CASTANEDA TO DEPENDENT DRAINAGE WITH MOD AMOUNTS OF JESS COLORED URINE NOTED. STUDENT NURSE TO DC CASTANEDA AND GIVE AM MEDS. HEAD TO TOE ASSESSMENT COMPLETE.
[2019-01-07 08:08] VITALS: BP 137/68; PULSE 70; TEMP 97.8
[2019-01-07 11:07] VITALS: BP 100/60; PULSE 72; TEMP 97.9
--- NOTE | 2019-01-07 11:44 | NUR ---
SW contacted and faxed updates to [facility].
[2019-01-07 15:21] LABS: HEMATOCRIT 26.6 % (42.0-52.0); HEMOGLOBIN 8.2 g/dl (13.5-18.0)
[2019-01-07 15:43] VITALS: BP 90/31; PULSE 72; TEMP 97.3
--- NOTE | 2019-01-07 16:55 | NUR ---
NURSING CALLED AND CONFIRMED PATIENT'S DNR STATUS AT [facility]. NURSE WORKING ON FAXING DOCUMENTS.
--- NOTE | 2019-01-07 20:00 | NUR ---
Patient report received from MARIETTA Duarte at bedside during shift report. Patient resting in bed comfortably at this time, denies significant pain or n/v. Guaze dressing to right hip has drainage present, approximately 2/3rds saturated. SCDs in place. Bed alarm on. No other needs observed/reported.
[2019-01-07 20:09] VITALS: BP 136/59; PULSE 77; TEMP 99
[2019-01-08] VITALS (7 sets, daily range): BP systolic 108–148; BP diastolic 49–63; PULSE 68–81; TEMP 97.4–98.8
--- NOTE | 2019-01-08 07:19 | NUR ---
Patient report given to MARIETTA Lemus at bedside. Patient resting comforatbly, appropriate with interaction.
[2019-01-08 07:33] LABS: BASO % 0.4 % (0.0-2.0); GRAN % 82.7 % (42.2-75.2); LYMPH # 0.9 (1.2-3.4); LYMPH % 9.2 % (20.0-51.0); MEAN CELL VOLUME 103 fl (80.0-100.0); MEAN CORPUSCULAR HGB CONC 31 g/dl (33.0-37.0); MEAN PLATELET VOLUME 10.1 fl (7.4-10.4); MONO # 0.7 (0.1-0.6); MONO % 7.4 % (1.7-9.3); PLATELET COUNT 150 K/mm3 (130-400); RED BLOOD COUNT 2.57 M/mm3 (4.20-5.60); REDCELL DISTRIBUTION WIDTH-CV 15.2 % (11.5-14.5)
--- NOTE | 2019-01-08 07:33 | NUR ---
report from Annette MCMANUS.
[2019-01-08 07:46] LABS: CALCIUM 8.1 mg/dL (8.4-10.2); CREATININE, serum 0.95 mg/dL (0.66-1.25); POTASSIUM 4.6 mmol/L (3.4-5.0)
[2019-01-08 07:51] LABS: HEMATOCRIT 26.4 % (42.0-52.0); HEMOGLOBIN 8.1 g/dl (13.5-18.0); MEAN CORPUSCULAR HEMOGLOBIN 32 pg (27.0-31.0)
--- NOTE | 2019-01-08 08:50 | NUR ---
capone cath discontinued. 9ml removed from balloon. tip intact. 240ml lenin clear urine emptied from bag. emmanuel care provided. Instructed patient on drinking fluids and to use his urinal.
--- NOTE | 2019-01-08 09:37 | NUR ---
SW and SW student attended clinical rounds. SW contacted and faxed updates to [facility]. SW to continue to follow.
--- NOTE | 2019-01-08 10:13 | NUR ---
PT TOOK AM MEDS ORDERED. PT KEEPS TRYING TO BE CONTRARIAN WITH STAFF. DRESSING TO RIGHT HIP MODERATE DRAINAGE NOTED. STUDENTS TO CHANGE DRESSING. PT IS INTERMITTANLY CONFUSED AND VERY DISSAGREABLE WITH STAFF AND STUDENT.
--- NOTE | 2019-01-08 16:08 | NUR ---
DRESSING CHANGE COMPLETE. EDGES OF INCISIONS CDI GAUZE AND TEGADERM OVER INCISIONS. PT TOLERATED WELL.
--- NOTE | 2019-01-08 17:58 | NUR ---
PT VOIDED THIS PM USING URINAL IN BED.
--- NOTE | 2019-01-08 21:00 | NUR ---
Patient in bed, did not eat his supper, did drink all of Ensure shake. Takes HS meds without problem. Voids per urinal in bed 100cc. Is confused and has inappropriate conversations with staff at times. Dressings to right hip intact. Wearing SCD's bilaterally to lower edematous extremities.
[2019-01-09 04:23] VITALS: BP 133/75; PULSE 88; TEMP 99.2
--- NOTE | 2019-01-09 05:30 | NUR ---
Patient drinking hot tea per his request. Has used the urinal for 100cc at this time. Remains confused. Oxygen on at 2L/nc.
--- NOTE | 2019-01-09 06:00 | NUR ---
Patient incontinent of large amount of urine, linens changed.
--- NOTE | 2019-01-09 07:00 | NUR ---
Patient found resting in bed. Incontinent of urine. Complains of pain 01/22. Ice applied to right hip. Patient's linens changed, bed bath given. Call light within reach.
--- NOTE | 2019-01-09 07:04 | NUR ---
report from Monica MCMANUS.
--- NOTE | 2019-01-09 07:05 | NUR ---
Student nurse Veda working with patient this am.
[2019-01-09 07:12] LABS: BASO # 0.1 (0.0-0.2); BASO % 0.5 % (0.0-2.0); GRAN # 7.7 (1.4-6.5); LYMPH # 0.8 (1.2-3.4); MEAN CELL VOLUME 100 fl (80.0-100.0); MEAN CORPUSCULAR HGB CONC 31 g/dl (33.0-37.0); MEAN PLATELET VOLUME 10.4 fl (7.4-10.4); MONO # 0.9 (0.1-0.6); MONO % 9.1 % (1.7-9.3); PLATELET COUNT 173 K/mm3 (130-400); RED BLOOD COUNT 2.57 M/mm3 (4.20-5.60)
[2019-01-09 07:21] LABS: CALCIUM 8.6 mg/dL (8.4-10.2); CREATININE, serum 0.88 (0.66-1.25); HEMATOCRIT 25.8 % (42.0-52.0); MAGNESIUM 2.2 mg/dL (1.6-2.3); MEAN CORPUSCULAR HEMOGLOBIN 31 pg (27.0-31.0); POTASSIUM 4.2 mmol/L (3.4-5.0)
[2019-01-09 08:00] VITALS: BP 159/65; PULSE 87; TEMP 97
--- NOTE | 2019-01-09 09:19 | NUR ---
ISSA and ISSA student attended clinical rounds. The patient is to tentatively discharge tomorrow, 01/10. ISSA faxed updates to [place] at [address] [employer].
[2019-01-09 12:00] VITALS: BP 115/51; PULSE 75; TEMP 99.6
--- NOTE | 2019-01-09 13:26 | NUR ---
Patient resting in chair at this time. PT is working with the patient. Call light within reach. Reported off to MARIETTA Lemus.
[2019-01-09 15:56] VITALS: BP 112/49; PULSE 74; TEMP 97.9
--- NOTE | 2019-01-09 18:22 | NUR ---
Pt resting in bed eating supper. Ice to right hip, O2 at 2L via nasal cannula continues. Bed alarm on, side rails up x4, and call light within reach. Reported off to MARIETTA Lemus.
--- NOTE | 2019-01-09 18:56 | NUR ---
REPORT TO ELINA MCMANUS.
[2019-01-09 20:45] VITALS: BP 140/57; PULSE 75; TEMP 97.4
--- NOTE | 2019-01-09 23:29 | NUR ---
Shift assessment complete. Patient lying in bed, awake. Oriented to self only. Able to state he was uncomfortable, but could not rate pain. Prn pain medication given. Scheduled meds given, pt tolerated well. Right hip dressing dry/intact, small amount of drainage on dressing. Denies any further needs. Will continue to assess.
[2019-01-10 00:04] VITALS: BP 146/69; PULSE 76; TEMP 98.4
[2019-01-10 04:00] VITALS: BP 124/54; PULSE 65; TEMP 98.3
--- NOTE | 2019-01-10 05:15 | NUR ---
Patient in bed, awake. C/o pain 4/10 in right hip. Ice pack applied, prn pain medication given. Will continue to assess.
[2019-01-10 06:52] LABS: BASO % 0.4 % (0.0-2.0); GRAN # 6.1 (1.4-6.5); GRAN % 76.6 % (42.2-75.2); LYMPH # 1.1 (1.2-3.4); LYMPH % 13.3 % (20.0-51.0); MEAN CELL VOLUME 101 fl (80.0-100.0); MEAN CORPUSCULAR HGB CONC 31 g/dl (33.0-37.0); MEAN PLATELET VOLUME 9.9 fl (7.4-10.4); MONO # 0.7 (0.1-0.6); MONO % 9.1 % (1.7-9.3); PLATELET COUNT 199 K/mm3 (130-400); REDCELL DISTRIBUTION WIDTH-CV 14.9 % (11.5-14.5)
[2019-01-10 06:57] LABS: HEMATOCRIT 25.2 % (42.0-52.0); HEMOGLOBIN 7.8 g/dl (13.5-18.0); MEAN CORPUSCULAR HEMOGLOBIN 31 pg (27.0-31.0)
--- NOTE | 2019-01-10 07:00 | NUR ---
Patient found resting in bed. No complaints of pain at this time. Encouraged fluids. Will continue to monitor.
[2019-01-10 07:07] LABS: CALCIUM 8.6 mg/dL (8.4-10.2); CREATININE, serum 0.87 (0.66-1.25); POTASSIUM 3.8 mmol/L (3.4-5.0)
[2019-01-10 08:00] VITALS: BP 120/46; PULSE 73; TEMP 97.3
[2019-01-10] MEDS ORDERED: XARELTO10 MG PO (08:59)
[2019-01-10] MEDS ORDERED: LASIX 40MG TABL40 MG PO (09:05)
[2019-01-10] MEDS ORDERED: ROXICODONE 55 MG/TAB PO (09:06)
[2019-01-10] MEDS ORDERED: PEPCID 20MG TAB20 MG PO (09:06)
--- NOTE | 2019-01-10 10:05 | NUR ---
The patient is to discharge today, 01/10, back to [facility] for a skilled stay. Transportation was set for 1200, via [facility]. SW informed the patient and patient's nurse. They were both in agreeance. SW also presented and explained the IM form to the patient. The patient verbalized understanding, signed, and he was provided a copy. No additional needs at this time.
[2019-01-10 10:09] VITALS: BP 120/46; PULSE 73; TEMP 97.3
[2019-01-10 11:52] VITALS: BP 152/68; PULSE 83; TEMP 97
--- NOTE | 2019-01-10 13:09 | NUR ---
Patient transfered to [facility] with transportation staff at 1250. Paperwork sent. Message left for [facility] to call back for report.
== END 2019-01-10 12:50 | DRG 481 ==
LOC: COL.ER 23:22 → EDBEDREQ 01-06 01:59 → COL.ER 01-06 04:30 → SURG 01-06 04:45
PROVIDERS: Nurse Practitioner; Nurse Practitioner Family; Orthopaedic Surgery; Physician Assistant; ADMIT Internal Medicine
PROC: 0QH636Z Insertion of Intramedullary Internal Fixation Device into Right Upper Femur, Percutaneous Approach (ICD-10-PCS; principal; 2019-01-06 10:30)
DX: S72.141A Displaced intertrochanteric fracture of right femur, initial encounter for closed fracture (principal); Z68.41 Body mass index [BMI] 40.0-44.9, adult; I50.32 Chronic diastolic (congestive) heart failure; N17.9 Acute kidney failure, unspecified; Z66 Do not resuscitate; L03.116 Cellulitis of left lower limb; L03.115 Cellulitis of right lower limb; J96.11 Chronic respiratory failure with hypoxia; F05 Delirium due to known physiological condition; W18.30XA Fall on same level, unspecified, initial encounter; E66.01 Morbid (severe) obesity due to excess calories; I11.0 Hypertensive heart disease with heart failure; E78.5 Hyperlipidemia, unspecified; E11.42 Type 2 diabetes mellitus with diabetic polyneuropathy; I25.10 Atherosclerotic heart disease of native coronary artery without angina pectoris; J44.9 Chronic obstructive pulmonary disease, unspecified; Z86.718 Personal history of other venous thrombosis and embolism; Z86.711 Personal history of pulmonary embolism; Z87.891 Personal history of nicotine dependence; Z79.01 Long term (current) use of anticoagulants; Z95.5 Presence of coronary angioplasty implant and graft; G20 Parkinson's disease; F03.90 Unspecified dementia, unspecified severity, without behavioral disturbance, psychotic disturbance, mood disturbance, and anxiety; E03.9 Hypothyroidism, unspecified; R42 Dizziness and giddiness; E87.5 Hyperkalemia; D50.0 Iron deficiency anemia secondary to blood loss (chronic); F32.9 Major depressive disorder, single episode, unspecified
CPT/HCPCS: 99223-AI; 99232-AI; 99233-AI; 99239; A9284; C1713; J0690; J1940; J2250; J2270; J2405; J2704; J2795; J3010; J7030; J7120

== ENCOUNTER 2019-02-02 10:40 | Emergency (ER) | payer MEDICARE, OTHER ==
[~2019-02-02] VITALS: Ht 172.7 cm; Wt 105.5 kg
[~2019-02-02 10:40] MED LIST changes: +MELATONIN3 MG PO; +NOVOLOG 100U100 U/M1; +PEPCID 20MG TAB20 MG PO; +ROXICODONE 55 MG/TAB PO; +XARELTO10 MG PO
[2019-02-02 10:43] VITALS: TEMP 98.1
[2019-02-02 11:05] LABS: BASO # 0.1 (0.0-0.2); BASO % 0.6 % (0.0-2.0); GRAN # 5.8 (1.4-6.5); HEMOGLOBIN 10.5 g/dl (13.5-18.0); LYMPH # 1.1 (1.2-3.4); LYMPH % 14.2 % (20.0-51.0); MEAN CELL VOLUME 101 fl (80.0-100.0); MEAN CORPUSCULAR HEMOGLOBIN 31 pg (27.0-31.0); MEAN CORPUSCULAR HGB CONC 31 g/dl (33.0-37.0); MEAN PLATELET VOLUME 9.5 fl (7.4-10.4); MONO # 0.8 (0.1-0.6); MONO % 9.9 % (1.7-9.3); PLATELET COUNT 226 K/mm3 (130-400); RED BLOOD COUNT 3.41 M/mm3 (4.20-5.60); REDCELL DISTRIBUTION WIDTH-CV 15.1 % (11.5-14.5)
[2019-02-02 11:13] LABS: ALANINE AMINOTRANSFERASE < 6 U/L (21-72); ALBUMIN 4.2 gm/dL (3.5-5.0); ALKALINE PHOSPHATASE 174 U/L (50-136); ANION GAP 12 mmol/L (7-16); AST,SGOT 20 U/L (15-37); BILIRUBIN,TOTAL 0.4 mg/dL (0.0-1.0); BLOOD UREA NITROGEN 30 mg/dL (9-20); CALCIUM 9.5 mg/dL (8.4-10.2); CARBON DIOXIDE 29 mmol/L (22-30); CHLORIDE 100 mmol/L (98-107); CREATININE, serum 1.27 (0.66-1.25); GLUCOSE 84 mg/dL (74-106); POTASSIUM 5.3 mmol/L (3.4-5.0); SODIUM 141 mmol/L (137-145); TOTAL PROTEIN 7.5 gm/dL (6.4-8.2)
[2019-02-02 11:15] LABS: HEMATOCRIT 34.4 % (42.0-52.0)
[2019-02-02 13:45] VITALS: BP 128/64; PULSE 70
== END 2019-02-02 13:53 | disposition home or self-care (01) ==
LOC: COL.ER 10:40
PROVIDERS: Family Medicine
DX: S70.01XA Contusion of right hip, initial encounter (principal); I11.0 Hypertensive heart disease with heart failure; I50.9 Heart failure, unspecified; E11.9 Type 2 diabetes mellitus without complications; I25.10 Atherosclerotic heart disease of native coronary artery without angina pectoris; Z79.02 Long term (current) use of antithrombotics/antiplatelets; Z79.4 Long term (current) use of insulin; W06.XXXA Fall from bed, initial encounter; Y92.129 Unspecified place in nursing home as the place of occurrence of the external cause

== ENCOUNTER → 2019-02-13 | Outpatient (CLI) | payer MEDICARE, OTHER ==
[2019-02-13 13:23] LABS: COLLECTION METHOD CLEAN CATCH
[2019-02-13 13:31] LABS: MUCOUS Present /lpf; PH 5 (5-8); SQUAMOUS EPITHELIAL 0-2 /hpf; URINE APPEARANCE Hazy; URINE BACTERIA Rare /hpf; URINE BILIRUBIN Negative (NEGATIVE); URINE BLOOD Negative (NEGATIVE); URINE COLOR Amber; URINE GLUCOSE Negative (NEGATIVE); URINE KETONE 1+ (NEGATIVE); URINE LEUKOCYTE ESTERASE Negative (NEGATIVE); URINE NITRATE Negative (NEGATIVE); URINE PROTEIN(semi-quant) 1+ (NEGATIVE); URINE RBC 0-2 /hpf
== END ==
LOC: ZLAB.STJ 13:10
PROVIDERS: Internal Medicine
DX: R82.90 Unspecified abnormal findings in urine (principal)

== ENCOUNTER → 2019-03-26 | Outpatient (CLI) | payer MEDICARE, OTHER | LOC: COL.RAD 13:58 | DX: M25.551 Pain in right hip (principal); Z96.7 Presence of other bone and tendon implants; W06.XXXA Fall from bed, initial encounter; Z87.81 Personal history of (healed) traumatic fracture ==

== ENCOUNTER → 2019-03-31 | Outpatient (CLI) | payer MEDICARE, OTHER ==
[~2019-03-31] MED LIST changes: +SEROQUEL 2525 MG/TAB PO
[2019-03-31 18:08] LABS: COLLECTION METHOD CLEAN CATCH
[2019-03-31 18:48] LABS: HYALINE CAST >12 /lpf; MUCOUS Present /lpf; PH 5 (5-8); SQUAMOUS EPITHELIAL 0-2 /hpf; URINE APPEARANCE Clear; URINE BACTERIA None Seen /hpf; URINE BILIRUBIN Negative (NEGATIVE); URINE BLOOD Negative (NEGATIVE); URINE COLOR Yellow; URINE GLUCOSE Negative (NEGATIVE); URINE KETONE Trace (NEGATIVE); URINE LEUKOCYTE ESTERASE Negative (NEGATIVE); URINE NITRATE Negative (NEGATIVE); URINE PROTEIN(semi-quant) Negative (NEGATIVE); URINE RBC 0-2 /hpf; URINE UROBILINOGEN Negative (NEGATIVE)
== END ==
LOC: ZCOL.LAB 16:56
PROVIDERS: Internal Medicine
DX: R82.90 Unspecified abnormal findings in urine (principal)

== ENCOUNTER 2019-04-02 06:19 | Emergency (ER) | payer MEDICARE, OTHER ==
[~2019-04-02] VITALS: Ht 172.7 cm; Wt 107.7 kg
[~2019-04-02 06:19] MED LIST changes: -SEROQUEL 2525 MG/TAB PO
[2019-04-02 06:25] VITALS: BP 151/67; TEMP 97.1
[2019-04-02 06:56] LABS: BASO % 0.6 % (0.0-2.0); GRAN # 5.2 (1.4-6.5); GRAN % 75.5 % (42.2-75.2); LYMPH % 14.5 % (20.0-51.0); MEAN CELL VOLUME 102 fl (80.0-100.0); MEAN CORPUSCULAR HEMOGLOBIN 31 pg (27.0-31.0); MEAN CORPUSCULAR HGB CONC 31 g/dl (33.0-37.0); MEAN PLATELET VOLUME 9.2 fl (7.4-10.4); MONO # 0.6 (0.1-0.6); MONO % 8.8 % (1.7-9.3); PLATELET COUNT 268 K/mm3 (130-400); RED BLOOD COUNT 3.19 M/mm3 (4.20-5.60); REDCELL DISTRIBUTION WIDTH-CV 15.8 % (11.5-14.5)
[2019-04-02 06:57] LABS: HEMATOCRIT 32.4 % (42.0-52.0)
[2019-04-02 07:11] LABS: ALANINE AMINOTRANSFERASE 13 U/L (21-72); ALBUMIN 4.1 gm/dL (3.5-5.0); ALKALINE PHOSPHATASE 124 U/L (50-136); ANION GAP 14 mmol/L (7-16); AST,SGOT 15 U/L (15-37); BILIRUBIN,TOTAL 0.5 mg/dL (0.0-1.0); BLOOD UREA NITROGEN 30 mg/dL (9-20); CALCIUM 9.4 mg/dL (8.4-10.2); CARBON DIOXIDE 27 mmol/L (22-30); CHLORIDE 99 mmol/L (98-107); CREATININE, serum 1.51 (0.66-1.25); GLUCOSE 117 mg/dL (74-106); POTASSIUM 4.6 mmol/L (3.4-5.0); SODIUM 140 mmol/L (137-145); TOTAL PROTEIN 6.8 gm/dL (6.4-8.2)
[2019-04-02 07:14] LABS: ACETAMINOPHEN < 10 ug/mL (10-30); ALCOHOL(ethanol),MEDICAL < 10 mg/dL; SALICYLATE < 1.0 mg/dL
[2019-04-02] MEDS ORDERED: SEROQUEL 2525 MG/TAB PO (08:35)
[2019-04-02 10:31] LABS: COLLECTION METHOD CLEAN CATCH
[2019-04-02 10:49] LABS: TRICYCLIC ANTIDEPRESS URINE NEGATIVE
[2019-04-02 10:55] LABS: HYALINE CAST >12 /lpf; MUCOUS Present /lpf; PH 5 (5-8); SQUAMOUS EPITHELIAL 0-2 /hpf; URINE APPEARANCE Hazy; URINE BACTERIA Rare /hpf; URINE BILIRUBIN Negative (NEGATIVE); URINE BLOOD Negative (NEGATIVE); URINE COLOR Amber; URINE GLUCOSE Negative (NEGATIVE); URINE KETONE Trace (NEGATIVE); URINE LEUKOCYTE ESTERASE Trace (NEGATIVE); URINE NITRATE Negative (NEGATIVE); URINE PROTEIN(semi-quant) Negative (NEGATIVE)
--- NOTE | 2019-04-02 11:20 | NUR ---
ISSA responded to ED consult. The patient resides at [facility] for long-term care. The patient was brought to the ED after becoming angry and having inappropriate behaviors. The ED physician contacted the patient's PCP and his PCP prescribed the patient seroquel. ISSA updated Reinaldo at [facility]. Reinaldo reports that they can accept the patient back. The patient is to discharge back to [facility] today, 04/02. Transportation was set for 1200, via [facility]. No additional needs at this time.
[2019-04-02 13:00] VITALS: PULSE 65
== END 2019-04-02 13:00 | disposition home or self-care (01) ==
LOC: COL.ER 06:19
PROVIDERS: Emergency Medicine
DX: F91.9 Conduct disorder, unspecified (principal); F32.9 Major depressive disorder, single episode, unspecified; F03.90 Unspecified dementia, unspecified severity, without behavioral disturbance, psychotic disturbance, mood disturbance, and anxiety; E03.9 Hypothyroidism, unspecified; E78.5 Hyperlipidemia, unspecified; G20 Parkinson's disease; E11.9 Type 2 diabetes mellitus without complications; I10 Essential (primary) hypertension; I50.9 Heart failure, unspecified; I25.10 Atherosclerotic heart disease of native coronary artery without angina pectoris; Z95.5 Presence of coronary angioplasty implant and graft; Z86.711 Personal history of pulmonary embolism; Z79.84 Long term (current) use of oral hypoglycemic drugs; Z79.02 Long term (current) use of antithrombotics/antiplatelets
CPT/HCPCS: J7030

== ENCOUNTER 2019-04-11 15:59 | Emergency (ER) | payer MEDICARE, OTHER ==
[~2019-04-11] VITALS: Ht 172.7 cm; Wt 109.1 kg
[~2019-04-11 15:59] MED LIST changes: +SEROQUEL 2525 MG/TAB PO
[2019-04-11 16:05] VITALS: TEMP 97.5
[2019-04-11 16:40] LABS: INR 1.5 (0.8-3.0); PROTHROMBIN TIME 17.4 SECONDS (9.7-12.8)
[2019-04-11 16:43] LABS: BASO # 0.1 (0.0-0.2); BASO % 0.6 % (0.0-2.0); GRAN # 5.9 (1.4-6.5); GRAN % 73.7 % (42.2-75.2); LYMPH # 1.1 (1.2-3.4); LYMPH % 13.7 % (20.0-51.0); MEAN CELL VOLUME 102 fl (80.0-100.0); MEAN CORPUSCULAR HGB CONC 31 g/dl (33.0-37.0); MEAN PLATELET VOLUME 9.5 fl (7.4-10.4); MONO # 0.9 (0.1-0.6); MONO % 11.5 % (1.7-9.3); PLATELET COUNT 258 K/mm3 (130-400); RED BLOOD COUNT 2.88 M/mm3 (4.20-5.60); REDCELL DISTRIBUTION WIDTH-CV 15.9 % (11.5-14.5)
[2019-04-11 16:45] LABS: HEMATOCRIT 29.5 % (42.0-52.0); HEMOGLOBIN 9.1 g/dl (13.5-18.0); MEAN CORPUSCULAR HEMOGLOBIN 32 pg (27.0-31.0)
[2019-04-11 16:55] LABS: ALANINE AMINOTRANSFERASE < 6 U/L (21-72); ALBUMIN 3.9 gm/dL (3.5-5.0); ALKALINE PHOSPHATASE 110 U/L (50-136); ANION GAP 10 mmol/L (7-16); AST,SGOT 21 U/L (15-37); BILIRUBIN,TOTAL 0.5 mg/dL (0.0-1.0); BLOOD UREA NITROGEN 25 mg/dL (9-20); C-REACTIVE PROTEIN 5.3 mg/dL (0.0-0.9); CALCIUM 9.2 mg/dL (8.4-10.2); CARBON DIOXIDE 30 mmol/L (22-30); CHLORIDE 102 mmol/L (98-107); CREATININE, serum 1.17 (0.66-1.25); LIPASE 28 U/L (23-300); POTASSIUM 4.3 mmol/L (3.4-5.0); SODIUM 141 mmol/L (137-145); TOTAL PROTEIN 7.4 gm/dL (6.4-8.2)
[2019-04-11 17:26] LABS: GLUCOSE 64 mg/dL (74-106)
[2019-04-11] MEDS ORDERED: MIRALAX PA17 GM/Dose PO (18:01)
[2019-04-11 18:10] LABS: COLLECTION METHOD CLEAN CATCH
[2019-04-11 18:16] LABS: MUCOUS Present /lpf; PH 5 (5-8); SQUAMOUS EPITHELIAL None Seen /hpf; URINE APPEARANCE Clear; URINE BACTERIA None Seen /hpf; URINE BILIRUBIN Negative (NEGATIVE); URINE BLOOD Negative (NEGATIVE); URINE COLOR Yellow; URINE GLUCOSE Negative (NEGATIVE); URINE KETONE Negative (NEGATIVE); URINE LEUKOCYTE ESTERASE Negative (NEGATIVE); URINE NITRATE Negative (NEGATIVE); URINE PROTEIN(semi-quant) Negative (NEGATIVE); URINE RBC 0-2 /hpf; URINE UROBILINOGEN Negative (NEGATIVE)
[2019-04-11] MEDS ORDERED: CEPHALEXIN500 M1 PO (19:10)
[2019-04-11 19:20] VITALS: BP 129/65; PULSE 63
== END 2019-04-11 19:45 | disposition home or self-care (01) ==
LOC: COL.ER 15:59
PROVIDERS: Emergency Medicine
DX: L03.116 Cellulitis of left lower limb (principal); R10.9 Unspecified abdominal pain; E11.9 Type 2 diabetes mellitus without complications; I10 Essential (primary) hypertension; Z79.4 Long term (current) use of insulin; Z79.82 Long term (current) use of aspirin
CPT/HCPCS: J7030; Q9967

== ENCOUNTER → 2019-05-30 | Outpatient (CLI) | payer MEDICARE, OTHER ==
[2019-05-30 19:13] LABS: CALCIUM 8.8 mg/dL (8.4-10.2); CREATININE, serum 1.14 (0.66-1.25); POTASSIUM 4.3 mmol/L (3.4-5.0)
== END ==
LOC: ZLAB.STJ 18:07 → COL.LAB 18:07
PROVIDERS: Nurse Practitioner
DX: G20 Parkinson's disease (principal); I50.32 Chronic diastolic (congestive) heart failure

== ENCOUNTER → 2019-06-20 | Outpatient (CLI) | payer MEDICARE, OTHER ==
[2019-06-20 19:54] LABS: CALCIUM 8.9 mg/dL (8.4-10.2); CREATININE, serum 1.11 (0.66-1.25); POTASSIUM 4.7 mmol/L (3.4-5.0)
== END ==
LOC: ZLAB.STJ 15:30
PROVIDERS: Nurse Practitioner
DX: C20 Malignant neoplasm of rectum (principal); J96.11 Chronic respiratory failure with hypoxia; E11.42 Type 2 diabetes mellitus with diabetic polyneuropathy

== ENCOUNTER 2019-08-15 12:56 | Emergency (ER) | payer MEDICARE, OTHER ==
[~2019-08-15] VITALS: Ht 175.3 cm; Wt 137.3 kg
[2019-08-15 15:07] VITALS: BP 151/62; PULSE 70; TEMP 98.9
== END 2019-08-15 15:07 | disposition home or self-care (01) ==
LOC: COL.ER 12:56
DX: M25.552 Pain in left hip (principal); E11.9 Type 2 diabetes mellitus without complications; I50.9 Heart failure, unspecified; G20 Parkinson's disease; Z87.891 Personal history of nicotine dependence; Z98.890 Other specified postprocedural states; Z79.4 Long term (current) use of insulin

== ENCOUNTER → 2019-09-09 | Outpatient (CLI) | payer MEDICARE, OTHER | LOC: ZLAB.STJ 10:23 | DX: E11.42 Type 2 diabetes mellitus with diabetic polyneuropathy (principal) ==

== ENCOUNTER → 2019-10-05 | Outpatient (CLI) | payer MEDICARE, OTHER ==
[2019-10-05 12:44] LABS: COLLECTION METHOD CLEAN CATCH
[2019-10-05 13:23] LABS: PH 6 (5-8); SQUAMOUS EPITHELIAL None Seen /hpf; URINE APPEARANCE Clear; URINE BACTERIA Rare /hpf; URINE BILIRUBIN Negative (NEGATIVE); URINE BLOOD Negative (NEGATIVE); URINE COLOR Yellow; URINE GLUCOSE Negative (NEGATIVE); URINE KETONE Negative (NEGATIVE); URINE LEUKOCYTE ESTERASE Negative (NEGATIVE); URINE NITRATE Negative (NEGATIVE); URINE PROTEIN(semi-quant) Negative (NEGATIVE); URINE RBC 0-2 /hpf; URINE UROBILINOGEN Negative (NEGATIVE)
== END ==
LOC: ZCOL.LAB 10:56
PROVIDERS: Internal Medicine
DX: R82.90 Unspecified abnormal findings in urine (principal)

== ENCOUNTER → 2019-12-17 | Outpatient (CLI) | payer MEDICARE, OTHER | LOC: ZLAB.STJ 14:22 | DX: R73.09 Other abnormal glucose (principal) ==

== ENCOUNTER → 2020-02-03 | Outpatient (CLI) | payer MEDICARE, OTHER ==
[2020-02-03 12:19] LABS: BASO # 0.1 (0.0-0.2); BASO % 0.7 % (0.0-2.0); EOS # 0.3 (0.0-0.7); EOS % 3.7 % (0-4.0); GRAN # 5.1 (1.4-6.5); GRAN % 67.9 % (42.2-75.2); HEMATOCRIT 38.4 % (42.0-52.0); HEMOGLOBIN 12.2 g/dl (13.5-18.0); LYMPH # 1.3 (1.2-3.4); LYMPH % 17.9 % (20.0-51.0); MEAN CELL VOLUME 103 fl (80.0-100.0); MEAN CORPUSCULAR HEMOGLOBIN 33 pg (27.0-31.0); MEAN CORPUSCULAR HGB CONC 32 g/dl (33.0-37.0); MONO # 0.7 (0.1-0.6); MONO % 9.5 % (1.7-9.3); PLATELET COUNT 211 K/mm3 (130-400); RED BLOOD COUNT 3.72 M/mm3 (4.20-5.60); REDCELL DISTRIBUTION WIDTH-CV 13.5 % (11.5-14.5)
[2020-02-03 12:23] LABS: ALBUMIN 4.3 gm/dL (3.5-5.0); BILIRUBIN,TOTAL 0.5 mg/dL (0.0-1.0); CALCIUM 9.2 mg/dL (8.4-10.2); CREATININE, serum 1.19 (0.66-1.25); POTASSIUM 4.7 mmol/L (3.4-5.0); TOTAL PROTEIN 7.5 gm/dL (6.4-8.2)
[2020-02-03 13:20] LABS: THYROID STIMULATING HORMONE 2.96 uIU/mL (0.465-4.680)
== END ==
LOC: ZLAB.STJ 12:02
PROVIDERS: Family Medicine
DX: I10 Essential (primary) hypertension (principal)

== ENCOUNTER → 2020-03-09 | Outpatient (CLI) | payer MEDICARE, OTHER | LOC: ZLAB.STJ 18:15 | DX: J96.11 Chronic respiratory failure with hypoxia (principal); I50.32 Chronic diastolic (congestive) heart failure; I10 Essential (primary) hypertension ==

== ENCOUNTER → 2020-03-11 | Outpatient (CLI) | payer MEDICARE, OTHER ==
[2020-03-11 13:09] LABS: CALCIUM 9.1 mg/dL (8.4-10.2); CREATININE, serum 1.03 (0.66-1.25); POTASSIUM 4.1 mmol/L (3.4-5.0)
== END ==
LOC: ZLAB.STJ 10:01
PROVIDERS: Family Medicine
DX: R79.89 Other specified abnormal findings of blood chemistry (principal)

== ENCOUNTER → 2020-03-16 | Outpatient (CLI) | payer MEDICARE, OTHER | LOC: ZLAB.STJ 11:29 | DX: I10 Essential (primary) hypertension (principal) ==

== ENCOUNTER → 2020-03-24 | Outpatient (CLI) | payer MEDICARE, OTHER | LOC: ZLAB.STJ 16:24 | DX: Z20.828 Contact with and (suspected) exposure to other viral communicable diseases (principal); Z01.84 Encounter for antibody response examination ==

== ENCOUNTER → 2020-04-13 | Outpatient (CLI) | payer MEDICARE, OTHER ==
[2020-04-13 13:45] LABS: CALCIUM 9.5 mg/dL (8.4-10.2); CREATININE, serum 1.13 (0.66-1.25); POTASSIUM 4.5 mmol/L (3.4-5.0)
== END ==
LOC: ZLAB.STJ 12:44
PROVIDERS: Family Medicine
DX: I11.0 Hypertensive heart disease with heart failure (principal); I50.32 Chronic diastolic (congestive) heart failure

== ENCOUNTER → 2020-05-05 | Outpatient (CLI) | payer MEDICARE, OTHER ==
[2020-05-05 21:03] LABS: CALCIUM 9.1 mg/dL (8.4-10.2); CREATININE, serum 1.44 (0.66-1.25)
[2020-05-05 21:33] LABS: THYROID STIMULATING HORMONE 4.44 uIU/mL (0.465-4.680)
== END ==
LOC: ZLAB.STJ 11:13
PROVIDERS: Family Medicine
DX: E78.5 Hyperlipidemia, unspecified (principal); E03.9 Hypothyroidism, unspecified; I27.20 Pulmonary hypertension, unspecified; I50.32 Chronic diastolic (congestive) heart failure

== ENCOUNTER → 2020-05-17 | Outpatient (CLI) | payer MEDICARE, OTHER ==
[2020-05-17 13:30] LABS: BASO # 0.1 (0.0-0.2); BASO % 0.9 % (0.0-2.0); EOS # 0.2 (0.0-0.7); EOS % 2.1 % (0-4.0); GRAN # 8.3 (1.4-6.5); HEMATOCRIT 39.3 % (42.0-52.0); HEMOGLOBIN 12.1 g/dl (13.5-18.0); LYMPH # 1.7 (1.2-3.4); MEAN CELL VOLUME 107 fl (80.0-100.0); MEAN CORPUSCULAR HEMOGLOBIN 33 pg (27.0-31.0); MEAN CORPUSCULAR HGB CONC 31 g/dl (33.0-37.0); MEAN PLATELET VOLUME 10.1 fl (7.4-10.4); MONO % 8.6 % (1.7-9.3); PLATELET COUNT 244 K/mm3 (130-400); RED BLOOD COUNT 3.66 M/mm3 (4.20-5.60)
[2020-05-17 13:40] LABS: ALBUMIN 4.3 gm/dL (3.5-5.0); BILIRUBIN,TOTAL 0.5 mg/dL (0.0-1.0); CALCIUM 9.1 mg/dL (8.4-10.2); CREATININE, serum 1.19 (0.66-1.25); POTASSIUM 5.1 mmol/L (3.4-5.0)
[2020-05-17 17:31] LABS: THYROID STIMULATING HORMONE 2.63 uIU/mL (0.465-4.680)
== END ==
LOC: ZLAB.STJ 13:20
PROVIDERS: Family Medicine
DX: E72.20 Disorder of urea cycle metabolism, unspecified (principal); R68.89 Other general symptoms and signs; I50.9 Heart failure, unspecified; R94.6 Abnormal results of thyroid function studies

== ENCOUNTER → 2020-05-24 | Outpatient (CLI) | payer MEDICARE, OTHER ==
[2020-05-24 12:33] LABS: BASO # 0.1 (0.0-0.2); BASO % 1.1 % (0.0-2.0); EOS # 0.3 (0.0-0.7); EOS % 3.3 % (0-4.0); GRAN # 6.4 (1.4-6.5); GRAN % 69.8 % (42.2-75.2); HEMATOCRIT 38.4 % (42.0-52.0); HEMOGLOBIN 11.9 g/dl (13.5-18.0); LYMPH # 1.7 (1.2-3.4); MEAN CELL VOLUME 108 fl (80.0-100.0); MEAN CORPUSCULAR HEMOGLOBIN 33 pg (27.0-31.0); MEAN CORPUSCULAR HGB CONC 31 g/dl (33.0-37.0); MEAN PLATELET VOLUME 10.3 fl (7.4-10.4); MONO # 0.7 (0.1-0.6); MONO % 7.4 % (1.7-9.3); PLATELET COUNT 259 K/mm3 (130-400); RED BLOOD COUNT 3.57 M/mm3 (4.20-5.60); REDCELL DISTRIBUTION WIDTH-CV 14.6 % (11.5-14.5)
== END ==
LOC: ZLAB.STJ 10:10
PROVIDERS: Family Medicine
DX: R68.89 Other general symptoms and signs (principal)

== ENCOUNTER → 2020-07-12 | Outpatient (CLI) | payer MEDICARE, OTHER ==
[2020-07-13 14:27] LABS: MUCOUS Present /lpf; PH 9 (5-8); SQUAMOUS EPITHELIAL 0-2 /hpf; URINE APPEARANCE Cloudy; URINE BACTERIA Rare /hpf; URINE BILIRUBIN Negative (NEGATIVE); URINE BLOOD Negative (NEGATIVE); URINE COLOR Amber; URINE GLUCOSE Negative (NEGATIVE); URINE KETONE Negative (NEGATIVE); URINE LEUKOCYTE ESTERASE 1+ (NEGATIVE); URINE NITRATE Negative (NEGATIVE); URINE PROTEIN(semi-quant) Negative (NEGATIVE); URINE RBC 0-2 /hpf; URINE TRIPLE PHOSPHATE CRYSTAL Present /hpf; URINE UROBILINOGEN Negative (NEGATIVE)
[2020-07-13 17:25] LABS: COLLECTION METHOD CLEAN CATCH
== END ==
LOC: ZLAB.STJ 17:30
PROVIDERS: Family Medicine
DX: R30.0 Dysuria (principal)

== ENCOUNTER → 2020-07-13 | Outpatient (CLI) | payer MEDICARE, OTHER ==
[2020-07-13 17:47] LABS: CALCIUM 9.2 mg/dL (8.4-10.2); CREATININE, serum 1.2 (0.66-1.25); POTASSIUM 4.5 mmol/L (3.4-5.0)
[2020-07-13 18:17] LABS: THYROID STIMULATING HORMONE 3.18 uIU/mL (0.465-4.680)
== END ==
LOC: ZLAB.STJ 14:00
PROVIDERS: Family Medicine
DX: E03.9 Hypothyroidism, unspecified (principal); I50.20 Unspecified systolic (congestive) heart failure

== ENCOUNTER 2020-08-14 04:35 | Inpatient (IN) | payer MEDICARE, OTHER ==
[~2020-08-14] VITALS: Ht 172.7 cm; Wt 145.0 kg
[2020-08-14] VITALS (309 sets, daily range): BP systolic 100–150; BP diastolic 44–83; PULSE 67–79; TEMP 97.3–98.4; O2SAT 83–100
[~2020-08-14 04:35] MED LIST changes: +BACTRIM DS 8001 TAB PO
[2020-08-14 04:55] LABS: ARTERIAL BLD GAS O2 SATURATION 96.1 % (92-100); ARTERIAL BLD GAS TCO2 CT 27.4; ARTERIAL BLOOD GAS BASE EXCESS 1.4 (-2-2); ARTERIAL BLOOD GAS HCO3 26.1 meq/L (22-26); ARTERIAL BLOOD GAS PO2 84.8 mmHg (80-100); ARTERIAL BLOOD GAS pH 7.41 (7.35-7.45)
[2020-08-14 05:06] LABS: BASO # 0.1 (0.0-0.2); EOS % 0.1 % (0-4.0); GRAN # 9.7 (1.4-6.5); GRAN % 78.1 % (42.2-75.2); HEMATOCRIT 34.7 % (42.0-52.0); LYMPH # 1.7 (1.2-3.4); LYMPH % 13.7 % (20.0-51.0); MEAN CELL VOLUME 103 fl (80.0-100.0); MEAN CORPUSCULAR HEMOGLOBIN 33 pg (27.0-31.0); MEAN CORPUSCULAR HGB CONC 32 g/dl (33.0-37.0); MEAN PLATELET VOLUME 10.3 fl (7.4-10.4); MONO # 0.8 (0.1-0.6); MONO % 6.6 % (1.7-9.3); PLATELET COUNT 261 K/mm3 (130-400); RED BLOOD COUNT 3.36 M/mm3 (4.20-5.60); REDCELL DISTRIBUTION WIDTH-CV 15.3 % (11.5-14.5)
[2020-08-14 05:13] LABS: PROTHROMBIN TIME 11.1 SECONDS (9.7-12.8)
[2020-08-14 05:15] LABS: ALBUMIN 4.1 gm/dL (3.5-5.0); BILIRUBIN,TOTAL 0.4 mg/dL (0.0-1.0); CALCIUM 8.7 mg/dL (8.4-10.2); CREATININE, serum 1.65 (0.66-1.25); MAGNESIUM 1.9 mg/dL (1.6-2.3); PARTIAL THROMBOPLASTIN TIME 26.6 SECONDS (26.0-37.0); POTASSIUM 4.6 mmol/L (3.4-5.0); TOTAL PROTEIN 7.5 gm/dL (6.4-8.2)
[2020-08-14 05:30] LABS: TROPONIN-I 0.105 ng/mL (0.000-0.035)
[2020-08-14] MEDS ORDERED: EFFEXOR 75M75 MG/TAB PO (06:10)
[2020-08-14] MEDS ORDERED: ULTRAM 50MG TAB50 MG PO ×2 (06:12→06:49)
[2020-08-14] MEDS ORDERED: BACTRIM DS 8001 TAB PO (06:13)
[2020-08-14] MEDS ORDERED: SEROQUEL50 MG PO (06:16)
[2020-08-14] MEDS ORDERED: SINEMET 25/101 UDTAB PO ×2 (06:19→06:20)
[2020-08-14] MEDS ORDERED: GLUCOPHAGE1000 MG PO (06:21)
[2020-08-14] MEDS ORDERED: TRULICITY1.5 MG/0.5 SQ (06:22)
[2020-08-14] MEDS ORDERED: NEURONTIN600 MG/TAB PO (06:24)
[2020-08-14] MEDS ORDERED: SYNTHROID0.075 MG/T PO (06:26)
[2020-08-14] MEDS ORDERED: LASIX 20MG TABL20 MG PO (06:27)
[2020-08-14] MEDS ORDERED: MAG-OX 400400 MG/TAB PO (06:32)
[2020-08-14] MEDS ORDERED: PROTONIX 40MG T40 MG PO (06:33)
[2020-08-14] MEDS ORDERED: FOLIC ACID 11 MG/TA1 PO (06:35)
[2020-08-14] MEDS ORDERED: VENTOLIN0.09 MG IH (06:35)
[2020-08-14] MEDS ORDERED: REQUIP 0.5MG0.5 MG PO (06:42)
[2020-08-14] MEDS ORDERED: B-12 500 MCG PO (06:44)
[2020-08-14] MEDS ORDERED: ALDACTONE 25MG25 M1 PO (06:50)
[2020-08-14] MEDS ORDERED: IPRATROPIUM BROM3 M1 IH (06:53)
--- NOTE | 2020-08-14 08:30 | NUR ---
Received report from Cecilia MCMANUS in ED.
--- NOTE | 2020-08-14 09:05 | NUR ---
Pt arrived via stretcher X1 assist from ED. Pt assisted to ICU bed 06. Pt able to move from stretcher to ICU bed with little assistance from staff although due to SOA it took pt a couple of minutes to roll from one bed to the other. Call light placed at bedside, patient positioned for comfort. Heparin gtt verified with ED and this nurse.
[2020-08-14] MEDS ORDERED: SALONPAS 3.1%-1 EACH TP (13:30)
[2020-08-14] MEDS ORDERED: NYSTATIN CREAM15 GM TP (13:31)
--- NOTE | 2020-08-14 14:17 | NUR ---
Vancomycin Initial Dosing Pharmacy Note Ordering provider: Taco Martinez MD Indication/duration: CELLULITIS LABS: WBC 12.4, SCr 1.65, CrCl 48 Recommendation: VANCOMYCIN 10MG/KG Maintenance dose: 1.5 grams every 24 hours Trough goal: 10-15 ug/mL. TROUGH 11/ @0600
[2020-08-14 16:23] LABS: PARTIAL THROMBOPLASTIN TIME 76.1 SECONDS (26.0-37.0)
--- NOTE | 2020-08-14 17:40 | NUR ---
Pts son called for an update. Provided family with pt code. Questions encouraged and answered. Reported that update will be passed on to mom Shanthi.
--- NOTE | 2020-08-14 19:00 | NUR ---
Report provided, pt didnt show much interest in report, laid in bed with eyes closed, when asked if there was anything to add pt reported wanting to get up to a commode. Discussion had that at this time due to pt not being able to lift right leg in the bed and with Heparin gtt that a bed nunez would be recommended. Assistance with mobility can be discussed with PT tomorrow. Pt agreed although expressed frustration. Pt also reported a "numbness" across the chest. Denies any pain although reported when laying down its "worse right now". Oncoming nurse notified of Nitro gtt order in the eMAR although pt has denied any complaints of pain to this nurse through out the shift.
[2020-08-15] VITALS (853 sets, daily range): BP systolic 118–157; BP diastolic 66–111; PULSE 65–91; TEMP 98.2–101.3; O2SAT 31–100
[2020-08-15 04:28] LABS: BASO # 0.1 (0.0-0.2); BASO % 0.6 % (0.0-2.0); EOS # 0.2 (0.0-0.7); EOS % 1.5 % (0-4.0); GRAN # 12.1 (1.4-6.5); GRAN % 85.1 % (42.2-75.2); HEMOGLOBIN 10.3 g/dl (13.5-18.0); LYMPH # 0.9 (1.2-3.4); MEAN CELL VOLUME 107 fl (80.0-100.0); MEAN CORPUSCULAR HEMOGLOBIN 33 pg (27.0-31.0); MEAN CORPUSCULAR HGB CONC 31 g/dl (33.0-37.0); MEAN PLATELET VOLUME 10.1 fl (7.4-10.4); MONO # 0.9 (0.1-0.6); MONO % 6.4 % (1.7-9.3); PLATELET COUNT 228 K/mm3 (130-400); RED BLOOD COUNT 3.13 M/mm3 (4.20-5.60); REDCELL DISTRIBUTION WIDTH-CV 15.8 % (11.5-14.5)
[2020-08-15 04:33] LABS: HEMATOCRIT 33.5 % (42.0-52.0)
[2020-08-15 04:37] LABS: CALCIUM 8.5 mg/dL (8.4-10.2); CREATININE, serum 1.21 (0.66-1.25); MAGNESIUM 2.1 mg/dL (1.6-2.3); POTASSIUM 5.1 mmol/L (3.4-5.0)
[2020-08-15 04:42] LABS: COLLECTION METHOD CLEAN CATCH
[2020-08-15 04:47] LABS: TROPONIN-I 3.61 ng/mL (0.000-0.035)
[2020-08-15 05:13] LABS: PH 6 (5-8); SQUAMOUS EPITHELIAL None Seen /hpf; URINE APPEARANCE Clear; URINE BACTERIA None Seen /hpf; URINE BILIRUBIN Negative (NEGATIVE); URINE BLOOD Negative (NEGATIVE); URINE COLOR Yellow; URINE GLUCOSE Negative (NEGATIVE); URINE KETONE Negative (NEGATIVE); URINE LEUKOCYTE ESTERASE Trace (NEGATIVE); URINE NITRATE Negative (NEGATIVE); URINE PROTEIN(semi-quant) Negative (NEGATIVE); URINE RBC 0-2 /hpf; URINE UROBILINOGEN Negative (NEGATIVE)
--- NOTE | 2020-08-15 07:00 | NUR ---
Bedside report received from MARIETTA Alcantar
--- NOTE | 2020-08-15 09:31 | NUR ---
Dr. Martinez on unit at this time. I voice concerns regarding confusion and increase shortness of breath. He gives order for ABG, blood cultures, antibiotics and CT chest with PE protocol. RT and CT called.
--- NOTE | 2020-08-15 09:45 | NUR ---
Patient taken to CT for CT of chest.
[2020-08-15 12:06] LABS: ARTERIAL BLD GAS TCO2 CT 27.3; ARTERIAL BLOOD GAS HCO3 25.7 meq/L (22-26); ARTERIAL BLOOD GAS PCO2 51.8 mmHg (35-45); ARTERIAL BLOOD GAS PO2 82.2 mmHg (80-100); ARTERIAL BLOOD GAS pH 7.31 (7.35-7.45)
--- NOTE | 2020-08-15 15:00 | NUR ---
Patient improving with level of consciousness and respiratory effort with use of Bipap. Son, Jose Enrique, here to visit. He is updated on plan of care.
[2020-08-15 19:17] LABS: ARTERIAL BLD GAS O2 SATURATION 96.9 % (92-100); ARTERIAL BLD GAS TCO2 CT 29.2; ARTERIAL BLOOD GAS BASE EXCESS 0.6 (-2-2); ARTERIAL BLOOD GAS HCO3 27.5 meq/L (22-26); ARTERIAL BLOOD GAS PCO2 55.1 mmHg (35-45); ARTERIAL BLOOD GAS PO2 90.8 mmHg (80-100); ARTERIAL BLOOD GAS pH 7.32 (7.35-7.45)
[2020-08-16] VITALS (582 sets, daily range): BP systolic 136–156; BP diastolic 61–83; PULSE 65–72; TEMP 97.7–99.2; O2SAT 68–100
[2020-08-16 06:12] LABS: ARTERIAL BLD GAS O2 SATURATION 96.7 % (92-100); ARTERIAL BLD GAS TCO2 CT 26.3; ARTERIAL BLOOD GAS HCO3 24.9 meq/L (22-26); ARTERIAL BLOOD GAS PCO2 46.6 mmHg (35-45); ARTERIAL BLOOD GAS PO2 87.7 mmHg (80-100); ARTERIAL BLOOD GAS pH 7.35 (7.35-7.45)
[2020-08-16 07:27] LABS: BASO % 0.2 % (0.0-2.0); GRAN # 11.6 (1.4-6.5); GRAN % 89.1 % (42.2-75.2); HEMOGLOBIN 10.1 g/dl (13.5-18.0); LYMPH % 7.6 % (20.0-51.0); MEAN CELL VOLUME 109 fl (80.0-100.0); MEAN CORPUSCULAR HEMOGLOBIN 33 pg (27.0-31.0); MEAN CORPUSCULAR HGB CONC 30 g/dl (33.0-37.0); MEAN PLATELET VOLUME 10.7 fl (7.4-10.4); MONO # 0.3 (0.1-0.6); MONO % 2.1 % (1.7-9.3); PLATELET COUNT 198 K/mm3 (130-400); RED BLOOD COUNT 3.05 M/mm3 (4.20-5.60); REDCELL DISTRIBUTION WIDTH-CV 15.9 % (11.5-14.5)
[2020-08-16 07:29] LABS: CALCIUM 8.3 mg/dL (8.4-10.2); CREATININE, serum 1.13 (0.66-1.25); MAGNESIUM 2.6 mg/dL (1.6-2.3); POTASSIUM 5.1 mmol/L (3.4-5.0)
[2020-08-16 07:31] LABS: HEMATOCRIT 33.3 % (42.0-52.0)
--- NOTE | 2020-08-16 10:29 | NUR ---
Rn Chemical Dependency met with the patient to complete initial intake. The patient lives at [facility] in [facility] and has for approximately three years. The patient states he receives assistance in and out of the of the shower but can clean himself. The patient could not recall his PCPs name. Per EMR the PCP is Dr. Carter Freeman. The patient's pharmacy is [facility]. The patient has advanced directives in the EMR and designate his children, Annabella and Jose Enrique # [phone]. The discharge plan is to return to [facility]. ISSA contacted the patient's son/DPOA-HC Jose Enrique to introduce oneself and to review the discharge plan. He was in agreeance with the patient returning to [facility]. ISSA faxed updates to [facility].
[2020-08-16 12:05] LABS: POTASSIUM 4.8 mmol/L (3.4-5.0)
--- NOTE | 2020-08-16 12:13 | NUR ---
Creative Perfumer attended clinical rounds with the team. ISSA contacted Jose Enrique to be on speaker phone.
[2020-08-16 12:36] LABS: MAGNESIUM 2.4 mg/dL (1.6-2.3); PHOSPHOROUS 2.8 mg/dL (2.5-4.5)
--- NOTE | 2020-08-16 17:25 | NUR ---
PT blood glucose level at 165. Dr. Sampson notified. Orders received to DC insulin drip. Please see eMAR for further orders.
[2020-08-16 18:16] LABS: MAGNESIUM 2.6 mg/dL (1.6-2.3); PHOSPHOROUS 2.4 mg/dL (2.5-4.5); POTASSIUM 4.6 mmol/L (3.4-5.0)
--- NOTE | 2020-08-16 18:33 | NUR ---
Dr. Vasquez notified of PTs troponin of 1.88. Troponin is trending down. No new orders received.
--- NOTE | 2020-08-16 19:33 | NUR ---
Report given to MARIETTA Alcantar.
[2020-08-17] VITALS (463 sets, daily range): BP systolic 130–150; BP diastolic 47–86; PULSE 68–73; TEMP 97.2–99.1; O2SAT 75–100
[2020-08-17 06:12] LABS: BASO % 0.1 % (0.0-2.0); GRAN # 13.8 (1.4-6.5); LYMPH # 0.8 (1.2-3.4); LYMPH % 5.4 % (20.0-51.0); MEAN CELL VOLUME 110 fl (80.0-100.0); MEAN CORPUSCULAR HGB CONC 30 g/dl (33.0-37.0); MEAN PLATELET VOLUME 10.6 fl (7.4-10.4); MONO # 0.6 (0.1-0.6); MONO % 3.9 % (1.7-9.3); PLATELET COUNT 237 K/mm3 (130-400); RED BLOOD COUNT 2.72 M/mm3 (4.20-5.60); REDCELL DISTRIBUTION WIDTH-CV 15.9 % (11.5-14.5)
[2020-08-17 06:25] LABS: HEMATOCRIT 29.8 % (42.0-52.0); MEAN CORPUSCULAR HEMOGLOBIN 33 pg (27.0-31.0)
[2020-08-17 06:26] LABS: CALCIUM 7.9 mg/dL (8.4-10.2); CREATININE, serum 1.48 (0.66-1.25); POTASSIUM 4.7 mmol/L (3.4-5.0)
--- NOTE | 2020-08-17 15:05 | NUR ---
Professor Of German attended clinical rounds with the team. ISSA contacted Jose Enrique and he was on speaker phone. ISSA faxed updates to Reinaldo at [facility].
[2020-08-17 17:13] LABS: HEMOGLOBIN 9.3 g/dl (13.5-18.0)
[2020-08-18] VITALS (636 sets, daily range): BP systolic 120–153; BP diastolic 51–92; PULSE 60–65; TEMP 97–98.4; O2SAT 88–100
[2020-08-18 05:40] LABS: BASO % 0.1 % (0.0-2.0); GRAN # 10.9 (1.4-6.5); HEMATOCRIT 30.2 % (42.0-52.0); HEMOGLOBIN 9.2 g/dl (13.5-18.0); LYMPH # 1.6 (1.2-3.4); MEAN CELL VOLUME 109 fl (80.0-100.0); MEAN CORPUSCULAR HEMOGLOBIN 33 pg (27.0-31.0); MEAN CORPUSCULAR HGB CONC 31 g/dl (33.0-37.0); MEAN PLATELET VOLUME 10.4 fl (7.4-10.4); MONO # 0.9 (0.1-0.6); MONO % 6.8 % (1.7-9.3); PLATELET COUNT 257 K/mm3 (130-400); RED BLOOD COUNT 2.78 M/mm3 (4.20-5.60); REDCELL DISTRIBUTION WIDTH-CV 15.8 % (11.5-14.5)
[2020-08-18 05:41] LABS: CALCIUM 7.9 mg/dL (8.4-10.2); CREATININE, serum 1.38 (0.66-1.25); POTASSIUM 4.8 mmol/L (3.4-5.0)
--- NOTE | 2020-08-18 10:24 | NUR ---
Several visit attempts; Leasing Consultant checked with nurse to see if patient was ever responsive. Leasing Consultant was glad to hear he does awaken and talks with nurses. Leasing Consultant lefe a prayer card with her name for patient when he awakens.
--- NOTE | 2020-08-18 19:15 | NUR ---
Patient resting in bed. Alert and partially oriented. Follows basic commands appropriately. Groin site assessed with day shift RN. Gauze lighty saturated with blood. Area tender to touch but soft with no signs of hematoma. Will continue to monitor.
[2020-08-19] VITALS (138 sets, daily range): BP systolic 104–153; BP diastolic 49–91; PULSE 63–77; TEMP 97.5–98.8; O2SAT 61–100
[2020-08-19 05:18] LABS: BASO % 0.1 % (0.0-2.0); GRAN # 7.9 (1.4-6.5); GRAN % 78.8 % (42.2-75.2); HEMATOCRIT 29.3 % (42.0-52.0); LYMPH % 10.2 % (20.0-51.0); MEAN CELL VOLUME 107 fl (80.0-100.0); MEAN CORPUSCULAR HEMOGLOBIN 33 pg (27.0-31.0); MEAN CORPUSCULAR HGB CONC 31 g/dl (33.0-37.0); MEAN PLATELET VOLUME 10.2 fl (7.4-10.4); MONO % 9.6 % (1.7-9.3); PLATELET COUNT 255 K/mm3 (130-400); RED BLOOD COUNT 2.75 M/mm3 (4.20-5.60); REDCELL DISTRIBUTION WIDTH-CV 15.9 % (11.5-14.5)
[2020-08-19 05:27] LABS: CALCIUM 8.1 mg/dL (8.4-10.2); CREATININE, serum 1.28 (0.66-1.25); POTASSIUM 4.5 mmol/L (3.4-5.0)
--- NOTE | 2020-08-19 07:00 | NUR ---
Removed BIPAP at this time to administer am medications. After removing strap this nurse noticed that the skin underneath where the strap had been had a shearing injury and was oozing blood. Cleansed with gauze and NS. Will continue to monitor.
--- NOTE | 2020-08-19 10:23 | NUR ---
Pressure Testing Technician attended clinical rounds with the team. ISSA contacted the patient's son Jose Enrique and he was on speaker phone. The patient to transfer to the floor this day. ISSA to fax updates to Reinaldo at [facility].
--- NOTE | 2020-08-19 11:52 | NUR ---
REPORT GIVEN TO MARIETTA CASANOVA ON MEDICAL FLOOR. HE WILL GO TO ROOM 355
--- NOTE | 2020-08-19 12:30 | NUR ---
PATIENT IS HEAVY 2:1 ASSIST WITH GAIT BELT AND WALKER TO GET UP FROM RECLINER TO WHEELCHAIR.
--- NOTE | 2020-08-19 18:34 | NUR ---
Pt had uneventful day. Pt is a x2 assist. Pt is Alert, however has moments of inappropriateness. Pt has had a significant bruising and skin tears all over. no further concerns. will report to night rn.
--- NOTE | 2020-08-19 18:53 | NUR ---
Report given to MARIETTA Mancia.
--- NOTE | 2020-08-19 20:30 | NUR ---
Pt assessment completed and documented. Pt alert and oriented x3 however can be inappropraite at times. Denies pain. PICC to RUE CDI. External cath draining clear, yellow urine. Pt on 1L O2 via nasal cannula. Pt denies any other needs/concerns. Call light within reach. Bed alarm on. Will continue to monitor
[2020-08-20 03:25] VITALS: BP 144/65; PULSE 65; TEMP 97.6
--- NOTE | 2020-08-20 05:01 | NUR ---
Pt has had uneventful night. Has been on bipap throughout the night. No reports of pain. Currently resting in bed. Bed alarm on. Call light within reach
--- NOTE | 2020-08-20 05:30 | NUR ---
Mepilex to upper back changed at this time. Wound red and white with foul smelling drainage.
--- NOTE | 2020-08-20 06:45 | NUR ---
Report given to MARIETTA Ibarra
[2020-08-20 07:12] VITALS: BP 147/64; PULSE 68; TEMP 97.5
--- NOTE | 2020-08-20 07:41 | NUR ---
RERPORT RCVD FROM MARIETTA BARRAZA. STUDENT NURSE BELLA TO ASSIST WITH PATIENT UNTIL 1345.
[2020-08-20 11:33] LABS: ALBUMIN 3.2 gm/dL (3.5-5.0); BILIRUBIN,TOTAL 0.5 mg/dL (0.0-1.0); CALCIUM 7.7 mg/dL (8.4-10.2); CREATININE, serum 1.22 (0.66-1.25); POTASSIUM 4.2 mmol/L (3.4-5.0); TOTAL PROTEIN 6.1 gm/dL (6.4-8.2)
[2020-08-20 13:18] VITALS: BP 136/53; PULSE 70; TEMP 98.8
--- NOTE | 2020-08-20 13:33 | NUR ---
The patient is ready to d/c. AV requires another COVID test, due to it being past 72 hours since his last one. A COVID send out test was ordered. ISSA notified and faxed updates to Reinaldo at [facility]. [facility] is able to accept the patient back over the weekend, if his COVID results come back. ISSA contacted and updated the patient's son, Jose Enrique. He is in agreement to this. ISSA also presented and read the IM form outloud to Jose Enrique. Jose Enrique verbalized understanding and gave SW approval to sign the form on his behalf. ISSA to continue to follow.
--- NOTE | 2020-08-20 14:24 | NUR ---
Primary nurse was assisted with [phone] patient care by [facility] [facility] [employer] student Zuly Obrien and [employer] instructor Analy Weir RN-.
[2020-08-20 16:49] VITALS: BP 151/59; PULSE 73; TEMP 99.2
[2020-08-20 19:20] VITALS: BP 135/62; PULSE 74; TEMP 99.2
[2020-08-20 23:55] VITALS: BP 145/55; PULSE 66; TEMP 98.1
--- NOTE | 2020-08-21 00:23 | NUR ---
Pt resting in bed, refusing to wear bipap. on oxygen via nasal cannula at 2 liters. assessment completed and medications given per DEC. pt reports shortness of breath on excertion, nonproductive cough and lung sounds are diminished. heart sounds are regular and normal. bilateral lower and upper exteremity edema with redness on legs. right groin site is covered with tegaderm dressing. no other needs at this time, will contineu to monitor.
[2020-08-21 03:16] VITALS: BP 112/56; PULSE 68; TEMP 98.3
--- NOTE | 2020-08-21 05:49 | NUR ---
pt sleeping in bed most of night, refused to wear bipap. oxygen on via nasal cannula at 2 liters. changed throughout the night as needed, incontinent of urine and bowel. no other needs at this time, will continue to monitor.
[2020-08-21 06:41] LABS: BASO % 0.1 % (0.0-2.0); EOS % 0.1 % (0-4.0); GRAN # 8.3 (1.4-6.5); GRAN % 81.9 % (42.2-75.2); LYMPH % 9.5 % (20.0-51.0); MEAN CELL VOLUME 105 fl (80.0-100.0); MEAN CORPUSCULAR HGB CONC 31 g/dl (33.0-37.0); MONO # 0.7 (0.1-0.6); MONO % 7.2 % (1.7-9.3); PLATELET COUNT 268 K/mm3 (130-400); RED BLOOD COUNT 2.68 M/mm3 (4.20-5.60); REDCELL DISTRIBUTION WIDTH-CV 15.7 % (11.5-14.5)
[2020-08-21 06:47] LABS: HEMATOCRIT 28.2 % (42.0-52.0); HEMOGLOBIN 8.6 g/dl (13.5-18.0); MEAN CORPUSCULAR HEMOGLOBIN 32 pg (27.0-31.0)
[2020-08-21 07:05] LABS: CALCIUM 7.8 mg/dL (8.4-10.2); CREATININE, serum 1.06 (0.66-1.25); MAGNESIUM 2.6 mg/dL (1.6-2.3); POTASSIUM 4.1 mmol/L (3.4-5.0)
[2020-08-21 08:00] VITALS: BP 143/63; PULSE 67; TEMP 97.7
--- NOTE | 2020-08-21 09:00 | NUR ---
Assessment complete. Pt resting in bed with eyes closed, alert to verbal stimuli, oriented x 3. Pt denies pain at this time. O2 at 2 L/min via NC. PICC line to right upper arm without s/s of complications. Bruises noted around umbilical region from anticoagulation injections. Edema to bilat lower ext. Pt denies further needs. Call light in reach.
[2020-08-21 12:00] VITALS: BP 141/60; PULSE 63; TEMP 97.6
--- NOTE | 2020-08-21 13:00 | NUR ---
Pt with incontinent episode of urine and loose bowel, large amount of both. With assistance, pt cleansed and linens changed. Lunch setup for pt. No further needs reported. Call light in reach.
[2020-08-21 15:52] VITALS: BP 131/56; PULSE 65; TEMP 98.3
--- NOTE | 2020-08-21 17:45 | NUR ---
Pt sitting up in bed ready for supper. Sched insulin administered per sliding scale orders. O2 remains in place. Pt denies pain or needs at this time. Call light in reach.
--- NOTE | 2020-08-21 18:15 | NUR ---
Pt sitting up in chair. Sched medication administered. Pt denies pain or needs at this time. POC reviewed with pt. Call light in reach.
[2020-08-21 19:12] VITALS: BP 142/60; PULSE 64; TEMP 98.3
--- NOTE | 2020-08-21 20:00 | NUR ---
Report received, assumed care for shift foreman. Assessment complete. VS stable. A&Ox3-very drowsy. Denies pain/nausea/shortness of breath. O2@2L/NC. PICC to right upper arm flushes without difficulty. HS meds given. Denies questions/concerns-just states he wants to go to bed. Call light in reach. Bed alarm on. Will monitor.
[2020-08-21 23:14] VITALS: BP 133/63; PULSE 65; TEMP 98.3
[2020-08-22 03:14] VITALS: BP 143/69; PULSE 63; TEMP 97.8
--- NOTE | 2020-08-22 04:06 | NUR ---
Slept most of this shift. No c/o pain/nausea/shorntess of breath. VS remained stable. Incontinent of a very large liquid brown BM and Very large urine. Denies needs. Call light in reach. Will monitor.
[2020-08-22 07:46] VITALS: BP 139/53; PULSE 66; TEMP 98.2
[2020-08-22 11:18] VITALS: BP 128/48; PULSE 63; TEMP 98.1
--- NOTE | 2020-08-22 13:20 | NUR ---
PICC removed from right upper arm with tip intact. Report called to Suki nurse at [facility]. Pt awaiting ride back to SNF.
--- NOTE | 2020-08-22 13:53 | NUR ---
Pt discharged to [facility] via [facility]. Discharge paperwork sent with [facility] staff.
--- NOTE | 2020-08-22 14:01 | NUR ---
SW contacted by nursing staff stating that patient had discharge orders to return to [facility]. SW printed out documenation, faxed orders to [facility], called [facility] and set up time of transport 1:00pm. 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 Nothing further.
== END 2020-08-22 13:53 | DRG 246 ==
LOC: COL.ER 04:35 → ICU 07:24 → MEDICAL 08-19 10:23
PROVIDERS: Emergency Medicine; Internal Medicine Cardiovascular Disease; Internal Medicine Critical Care Medicine; Internal Medicine Pulmonary Disease; Physician Assistant; Student in an Organized Health Care Education/Training Program; ADMIT Internal Medicine
PROC: 02HV33Z Insertion of Infusion Device into Superior Vena Cava, Percutaneous Approach (ICD-10-PCS; principal; 2020-08-16)
PROC: 027135Z Dilation of Coronary Artery, Two Arteries with Two Drug-eluting Intraluminal Devices, Percutaneous Approach (ICD-10-PCS; 2020-08-18)
PROC: 4A023N6 Measurement of Cardiac Sampling and Pressure, Right Heart, Percutaneous Approach (ICD-10-PCS; 2020-08-18)
PROC: B2111ZZ Fluoroscopy of Multiple Coronary Arteries using Low Osmolar Contrast (ICD-10-PCS; 2020-08-18)
DX: I21.4 Non-ST elevation (NSTEMI) myocardial infarction (principal); I50.23 Acute on chronic systolic (congestive) heart failure; J96.01 Acute respiratory failure with hypoxia; J96.02 Acute respiratory failure with hypercapnia; E87.1 Hypo-osmolality and hyponatremia; N17.9 Acute kidney failure, unspecified; G93.40 Encephalopathy, unspecified; Z68.42 Body mass index [BMI] 45.0-49.9, adult; E66.01 Morbid (severe) obesity due to excess calories; E78.5 Hyperlipidemia, unspecified; F17.210 Nicotine dependence, cigarettes, uncomplicated; I35.0 Nonrheumatic aortic (valve) stenosis; I27.20 Pulmonary hypertension, unspecified; E11.65 Type 2 diabetes mellitus with hyperglycemia; I25.10 Atherosclerotic heart disease of native coronary artery without angina pectoris; N40.0 Benign prostatic hyperplasia without lower urinary tract symptoms; G20 Parkinson's disease; F32.9 Major depressive disorder, single episode, unspecified; F03.90 Unspecified dementia, unspecified severity, without behavioral disturbance, psychotic disturbance, mood disturbance, and anxiety; Z20.828 Contact with and (suspected) exposure to other viral communicable diseases; M54.12 Radiculopathy, cervical region; E11.42 Type 2 diabetes mellitus with diabetic polyneuropathy; G47.30 Sleep apnea, unspecified; E03.9 Hypothyroidism, unspecified; Z79.84 Long term (current) use of oral hypoglycemic drugs; Z86.711 Personal history of pulmonary embolism; Z79.82 Long term (current) use of aspirin
CPT/HCPCS: 99223-AI; 99233-AI; 99239; A9284; C1725; C1751; C1760; C1769; C1874; C1887; C1894; C9601; J0456; J0583; J0692; J1644; J1650; J1815; J1940; J2704; J2920; J3010; J3370; J7030; J7050; J7512; Q9967

== ENCOUNTER → 2020-08-24 | Outpatient (CLI) | payer MEDICARE, OTHER ==
[~2020-08-24] MED LIST changes: +ALDACTONE 25MG25 M1 PO; +B-12 500 MCG PO; +EFFEXOR 75M75 MG/TAB PO; +FOLIC ACID 11 MG/TA1 PO; +GLUCOPHAGE1000 MG PO; +LASIX 20MG TABL20 MG PO; +NEURONTIN600 MG/TAB PO; +NYSTATIN CREAM15 GM TP; +PROTONIX 40MG T40 MG PO; +REQUIP 0.5MG0.5 MG PO; +SALONPAS 3.1%-1 EACH TP; +SEROQUEL50 MG PO; +SYNTHROID0.075 MG/T PO; +TRULICITY1.5 MG/0.5 SQ; +VENTOLIN0.09 MG IH
[2020-08-24 12:09] LABS: BASO % 0.5 % (0.0-2.0); EOS % 0.1 % (0-4.0); GRAN # 6.2 (1.4-6.5); GRAN % 72.3 % (42.2-75.2); LYMPH # 1.4 (1.2-3.4); LYMPH % 16.1 % (20.0-51.0); MEAN CELL VOLUME 109 fl (80.0-100.0); MEAN CORPUSCULAR HGB CONC 30 g/dl (33.0-37.0); MEAN PLATELET VOLUME 9.9 fl (7.4-10.4); MONO # 0.9 (0.1-0.6); PLATELET COUNT 350 K/mm3 (130-400); RED BLOOD COUNT 2.71 M/mm3 (4.20-5.60); REDCELL DISTRIBUTION WIDTH-CV 15.9 % (11.5-14.5)
[2020-08-24 12:10] LABS: HEMATOCRIT 29.5 % (42.0-52.0); HEMOGLOBIN 8.8 g/dl (13.5-18.0); MEAN CORPUSCULAR HEMOGLOBIN 32 pg (27.0-31.0)
[2020-08-24 12:15] LABS: CALCIUM 8.1 mg/dL (8.4-10.2); CREATININE, serum 1.14 (0.66-1.25)
== END ==
LOC: ZLAB.STJ 11:17
PROVIDERS: Family Medicine
DX: I50.32 Chronic diastolic (congestive) heart failure (principal); E11.9 Type 2 diabetes mellitus without complications

== ENCOUNTER → 2020-10-01 | Outpatient (REF) | LOC: ZLAB.STJ 14:12 | DX: I25.10 Atherosclerotic heart disease of native coronary artery without angina pectoris (principal) ==

== ENCOUNTER → 2020-10-14 | Outpatient (CLI) | payer MEDICARE, OTHER ==
[2020-10-14 21:23] LABS: BASO # 0.1 (0.0-0.2); EOS # 0.1 (0.0-0.7); EOS % 1.7 % (0-4.0); GRAN # 3.2 (1.4-6.5); GRAN % 61.1 % (42.2-75.2); HEMOGLOBIN 10.9 g/dl (13.5-18.0); LYMPH # 1.3 (1.2-3.4); LYMPH % 25.1 % (20.0-51.0); MEAN CELL VOLUME 102 fl (80.0-100.0); MEAN CORPUSCULAR HEMOGLOBIN 32 pg (27.0-31.0); MEAN CORPUSCULAR HGB CONC 31 g/dl (33.0-37.0); MONO # 0.6 (0.1-0.6); MONO % 10.7 % (1.7-9.3); PLATELET COUNT 229 K/mm3 (130-400); RED BLOOD COUNT 3.43 M/mm3 (4.20-5.60); REDCELL DISTRIBUTION WIDTH-CV 14.9 % (11.5-14.5)
[2020-10-14 21:24] LABS: HEMATOCRIT 35.1 % (42.0-52.0)
[2020-10-14 21:26] LABS: CALCIUM 8.6 mg/dL (8.4-10.2); CREATININE, serum 1.08 (0.66-1.25); POTASSIUM 3.6 mmol/L (3.4-5.0)
[2020-10-14 21:56] LABS: THYROID STIMULATING HORMONE 2.95 uIU/mL (0.465-4.680)
== END ==
LOC: ZLAB.STJ 15:35 → ZCOL.LAB 15:35
PROVIDERS: Family Medicine
DX: I50.23 Acute on chronic systolic (congestive) heart failure (principal)